=== PATIENT | female | born 1950 | race Caucasian/White ===

== ENCOUNTER 2017-08-14 08:59 | Inpatient (IN) | payer OTHER, MEDICARE ==
[2017-08-13 13:33] LABS: ABSOLUTE BASOPHIL COUNT 0 /CUMM (0.0-0.2); ABSOLUTE EOSINOPHIL COUNT 0 /CUMM (0.0-0.7); ABSOLUTE LYMPH COUNT 1.1 /CUMM (1.2-3.4); ABSOLUTE MONOCYTE COUNT 0.7 /CUMM (0.10-0.60); BASOPHIL % 0.3 % (0.0-2.0); EOSINOPHIL % 0.2 % (0-5); HEMATOCRIT 39.1 % (37-47); MEAN CORPUSCULAR HGB 31.5 PG (27.0-31.0); MEAN CORPUSCULAR HGB CONC 33.1 G/DL (33.0-37.0); MEAN CORPUSCULAR VOLUME 95.2 FL (81.0-99.0); MEAN PLATELET VOLUME 7.3 FL (7.4-10.4); PLATELET COUNT 307 /CUMM (130-400); RBC DISTRIBUTION WIDTH 13.2 % (11.5-14.5); RED BLOOD CELL CT 4.11 /CUMM (4.20-5.40); WHITE BLOOD CELL COUNT 8.9 /CUMM (4.8-10.8)
[~2017-08-14] VITALS: Ht 175.3 cm; Wt 72.6 kg
[~2017-08-14 08:59] MED LIST: ALPRAZOLAM1 MG PO; BIOTIN1000 MCG PO; CELEBREX PO; CLARITIN10 MG PO; CYMBALTA 30 MG30 MG PO; CYMBALTA60 MG PO; DEEP SEA 45 ML45 ML NAS; FERROUS FUMARA324 MG PO; FLONASE120 SPRAY/ NASB; FLUTICASON0.05 MG/A2 NAS; HYDROXYZINE10 MG PO; LEVOTHYROXIN0.112 MG PO; LEXAPRO PO; LYRICA 25 MG PO; NAPROXEN220 MG PO; NASACORT A55 MCG/Ac1 NAS; NASAL 30 ML30 M1 NAS; OXACILLIN2 G1 IV; OXYCODONE HCL5 MG PO; RANITIDINE150 MG PO; REFRESH TEARS 115 ML OPH; SENOKOT8.6 MG PO; VITAMIN B121000 MCG PO; VITAMIN D32000 I1 PO
--- NOTE | 2017-08-14 09:21 | ED UPPER/LOWER EXTREMITY COMPL ---
History of Present Illness General Chief Complaint: Lower Extremity Problems Stated Complaint: R KNEE INFECTION Source: patient, old records Exam Limitations: no limitations Vital Signs & Intake/Output Vital Signs & Intake/Output Vital Signs Date Time Temp Pulse Resp B/P B/P Pulse O2 O2 Flow FiO2 Mean Ox Delivery Rate 08/14 1042 98.5 08/14 0915 98.5 78 15 121/70 97 Room Air Room Air Allergies Coded Allergies: MICK Inhibitors (UNKNOWN 08/14/17) Reconcile Medications Bupropion HCl (Wellbutrin Sr) 150 MG TABLET.ER 1 TAB PO DAILY MENTAL HEALTH ( Reported) Escitalopram Oxalate (Lexapro) 10 MG TABLET 1 TAB PO DAILY MENTAL HEALTH ( Reported) Hydroxyzine HCl 10 MG TABLET 1 TAB PO BIDP PRN ITCHING (Reported) Levothyroxine Sodium 112 MCG TABLET 1 TAB PO DAILY AC THYROID (Reported) Trazodone HCl 50 MG TABLET 2 TAB PO QPM SLEEP (Reported) Triage Note: PT TO ED FOR R KNEE PAIN. PT HAD R KNEE REPLACEMENT IN 2009, BUT PT HAD KNEE DRAINED ON FRIDAY AND HAS BEEN HAVING PAIN SINCE. SCHEDULED TO HAVE SURGERY TODAY AT 0700 BUT WAS THEN SENT TO ED FOR ADMISSION UNDER SURGICAL TEAM. PT HAS BEEN NPO SINCE LAST NIGHT. AFEBRILE IN TRIAGE. Triage Nurses Notes Reviewed? yes Onset: Abrupt Duration: day(s): (3), constant Timing: recent history Severity: moderate Severity Numbers: 8 Pain/Injury Location: Right: Knee. Method of Injury: unknown Modifying Factors: Worsens With: movement. Associated Symptoms: swelling, redness, stiffness, fever HPI: 67 year old female with past medical history significant for r knee replacement by dr phan in 2009, septic arthritis of the left knee, hypertension, hyperlipidemia, asthma/COPD, sleep apnea with CPAP machine, chronic arthritis, history of breast cancer in 1996, hypothyroidism, GERD, Bipolar personality disorder, dvt/pulmonary embolus, hx IVC filter, hx gastric bypass presents to the ER for evaluation sent in by her orthopedic doctor for admission to the hospital and OR for washout. Patient had a arthrocentesis performed of the knee yesterday by Dr. Jessica. The patient states she's been having pain and warmth to her knee for the past 2-3 days associated with subjective fever and chills. She denies any hip foot or ankle pain no numbness or tingling no chest pain no cough abdominal pain. She denies any known trauma or fall. Past History Travel History Traveled to [place] past 21 day No Medical History Any Pertinent Medical History? 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 Other Medical Hx: Sepsis after gastric bypass, psoriasis History of MRSA: No History of VRE: No History of CDIFF: No Influenza Vaccine: 02/02/15 Surgical History Surgical History: hernia repair-ventral, knee replacement (right knee), lumpectomy (left x2 1996), knee arthroplasty lumpectomy gastric bypass GJ bypass 01/03/2011 f/b lap x 2 for anast leak & intra abd abscess status post left knee arthroscopy 7 years prior to admission status post gastric bypass surgery complicated by an anastomotic leak Psychosocial History Who do you live with Spouse Services at Home None What is your primary language Yakut Tobacco Use: Quit >30 days ago ETOH Use: occasional use Illicit Drug Use: denies illicit drug use Family History Family History, If Any: FATHER (Hx colon polyps). , Age 87; Cause: CHF (congestive heart failure ). MOTHER, , Age 83; Cause: CHF (congestive heart failure). Hx Contributory? No Review of Systems Review of Systems Constitutional: Reports: see HPI. Comments Review of systems: See HPI, All other systems negative. Constitutional, Subjective chills fever, HEENT: no sore throat no congestion Cardiovascular: No chest pain , no palpitation Skin: no rashes, no change in skin Respiratory: No dyspnea no cough no sputum GI: No nausea no vomiting, no diarrhea Muscle skeletal: joint pain, no back pain, no neck pain, Neurologic: , no headache Heme/endocrine: No bruising Immunology: No lymphadenopathy Physical Exam Physical Exam General Appearance: well developed/nourished, no apparent distress, alert Comments: Well-developed well-nourished patient in no apparent distress. HEENT: Atraumatic, extraocular motion intact Neck: Supple, FROM Back: FROM Cardiovascular: Regular rate and rhythms Respiratory: No respiratory distress. Patient speaking in full complete sentences. Breath sounds clear to auscultation bilaterally: NO W/R/R Upper Extremities: full range of motion Hip/Pelvis: Atraumatic/Stable. FROM. No pain with pelvic compression Knee: Atraumatic/stable. No laxity. pain with ROM of the right knee limited range of motion secondary to pain, there is positive warmth however no erythema no ecchymosis, the left knee is atraumatic Leg: Atraumatic. Nontender. No edema, 5 out of 5 strength in the lower extremity, normal dorsiflexion of great toe bilaterally, gross sensation is intact Ankle/Foot: Atraumatic/stable. Skin intact. FROM. No swelling, no effusion. No laxity on exam Pulses: Normal/equal DP/PT pulses bilaterally. Brisk cap refill Neuro: awake, alert, and oriented to person, place and time. There were no obvious focal neurologic abnormalities. Skin: Warm & dry;No appreciable rash on exposed skin Psych: Mood affect normal, normal memory normal judgment. Progress Differential Diagnosis: cellulitis, contusion, septic arthritis, sprain, tendon injury Plan of Care: Orders Procedure Date/time Status Nothing by Mouth 08/14 L Active LACTIC ACID 08/14 1220 Active Pathway - chart 08/14 1101 Active Admit to inpatient 08/14 1101 Active Patient Data 08/14 1101 Active Misc Message 08/14 1033 Active ED Holding Orders 08/14 1033 Active Admit to inpatient 08/14 1033 Active Vital Signs 08/14 1033 Active Code Status 08/14 1033 Active EKG 08/14 0940 Active BLOOD CULTURE 08/14 0920 Active PARTIAL THROMBOPLASTIN TIME 08/14 0920 Complete PROTHROMBIN TIME 08/14 0920 Complete LACTIC ACID 08/14 0920 Complete COMPREHENSIVE METABOLIC PANEL 08/14 0920 Complete CBC WITHOUT DIFFERENTIAL 08/14 0920 Complete TYPE & SCREEN (NOT X-MATCH) 08/14 0920 Complete VTE Mechanical Prophylaxis 08/14 UNK Active Vital Signs 08/14 UNK Active Intake & Output 08/14 UNK Active Activity/Ambulation 08/14 UNK Active Current Medications Sig/Annamarie Start time Last Medication Dose Stop Time Status Admin Bupropion HCl 150 MG DAILY 08/15 0900 UNVr (Wellbutrin XL) Escitalopram Oxalate 10 MG DAILY 08/15 0900 UNVr (Lexapro) Levothyroxine Sodium 0.112 MG DAILY AC 08/15 0700 UNVr (Synthroid) Trazodone HCl 100 MG QPM 08/14 2100 UNVr (Desyrel) Acetaminophen 650 MG Q6P PRN 08/14 1100 UNVr (Tylenol) Dextrose/Sodium 1,000 ML .[id number] 08/14 1100 UNVr Chloride (D5-Normal Saline) Hydroxyzine HCl 25 MG TID PRN 08/14 1100 UNVr (Atarax) Morphine Sulfate 2 MG Q2 HRS NEEDED PRN 08/14 1100 UNVr (Morphine) Oxycodone/ 1 TAB Q6P PRN 08/14 1100 UNVr Acetaminophen (Percocet) Oxycodone/ 2 TAB Q4P PRN 08/14 1100 UNVr Acetaminophen (Percocet) Sodium Chloride 1,000 ML ONCE ONE 08/14 1015 AC 08/14 (Normal Saline 0.9%) 08/14 1654 1042 Laboratory Tests 08/14/17 1011: Anion Gap 12, Estimated GFR > 60, BUN/Creatinine Ratio 25.0, Glucose 107 H, Lactic Acid 0.7, Calcium 9.2, Total Bilirubin 0.6, AST 39 H, ALT 56 H, Alkaline Phosphatase 85, Total Protein 7.3, Albumin 4.0, Globulin 3.3, Albumin/ Globulin Ratio 1.2, PT 12.3, INR 1.13, APTT 35, CBC w Diff NO MAN DIFF REQ, RBC 4.10 L, MCV 95.6, MCH 32.2 H, MCHC 33.7, RDW 12.7, MPV 7.4, Gran % 69.9, Lymphocytes % 20.7, Monocytes % 8.1, Eosinophils % 1.1, Basophils % 0.2, Absolute Granulocytes 4.4, Absolute Lymphocytes 1.3, Absolute Monocytes 0.5, Absolute Eosinophils 0.1, Absolute Basophils 0 Microbiology 08/14 1036 BLOOD: Blood Culture - RECD 08/14 0920 BLOOD: Blood Culture - ORD old records including the pts joint fluid anaylsis reviewed. call placed to ortho 1000 case discussed with surgical AARON shetty- no antibiotics at this time no x- ray labs EKG ordered, IV fluids, IV Tylenol ordered patient will go to the OR this afternoon Initial ED EKG: normal intervals, normal p-waves, normal QRS complex, normal sinus rhythm Prior EKG: unchanged Departure Departure Time of Disposition: 101 Disposition: STILL A PATIENT Condition: Stable Clinical Impression Primary Impression: Septic arthritis Referrals: Opal SMITH,Calista Schroeder (PCP/Family) Departure Forms: Customer Survey General Discharge Information Admission Note Spoke With: Vadim SMITH,Ovidio Cifuentes Documentation of Exam: Documentation of any treatments & extenuating circumstances including Concerns Regarding Discharge (functional status, medication knowledge or non-compliance, living conditions, etc.) that warrant an admission rather than observation: OR washout, iv abx, trend labs, trend cultures, id consult
[2017-08-14 10:30] LABS: ABSOLUTE BASOPHIL COUNT 0 /CUMM (0.0-0.2); ABSOLUTE EOSINOPHIL COUNT 0.1 /CUMM (0.0-0.7); ABSOLUTE GRANULOCYTE CT 4.4 /CUMM (1.4-6.5); ABSOLUTE LYMPH COUNT 1.3 /CUMM (1.2-3.4); ABSOLUTE MONOCYTE COUNT 0.5 /CUMM (0.10-0.60); BASOPHIL % 0.2 % (0.0-2.0); EOSINOPHIL % 1.1 % (0-5); GRANULOCYTE % 69.9 % (42.2-75.2); HEMATOCRIT 39.2 % (37-47); MEAN CORPUSCULAR HGB 32.2 PG (27.0-31.0); MEAN CORPUSCULAR HGB CONC 33.7 G/DL (33.0-37.0); MEAN CORPUSCULAR VOLUME 95.6 FL (81.0-99.0); MEAN PLATELET VOLUME 7.4 FL (7.4-10.4); PLATELET COUNT 303 /CUMM (130-400); RBC DISTRIBUTION WIDTH 12.7 % (11.5-14.5); WHITE BLOOD CELL COUNT 6.4 /CUMM (4.8-10.8)
[2017-08-14 10:39] LABS: PT 12.3 SEC (9.4-12.5); PTT 35 SEC (25-37)
[2017-08-14] MEDS ORDERED: TRAZODONE HCL50 M1 PO (10:41)
[2017-08-14] MEDS ORDERED: LEVOTHYROXINE112 MCG PO (10:41)
[2017-08-14] MEDS ORDERED: WELLBUTRIN SR150 M1 PO (10:41)
[2017-08-14] MEDS ORDERED: LEXAPRO10 M1 PO (10:41)
[2017-08-14] MEDS ORDERED: HYDROXYZINE HCL10 M1 PO (10:42)
--- NOTE | 2017-08-14 11:35 | History & Physical Pre-Op ---
General Information and HPI MD Statement: I have seen and personally examined ALBAN ZHAO and documented this H&P. The patient is a 67 year old F who presented with a patient stated chief complaint of [R knee infection]. Source of Information: patient, old records Exam Limitations: no limitations History of Present Illness: 67 yo female with co R knee pain for 4 days, started without trauma. Hx of R TKA >[address] Fierro without complications. hx of L septic knee in the past. hx of DVT/PE, sepsis p gastric bypass surgery. she noted chills when knee pain started, no fever. seen by Dr Jessica as out pt yesterday and knee was aspirated and thought to be infected (no growth on culture thus far). labs yesterday show WBC of 8.6, crp >9, ESR 48. she was advised to be admitted this morning for a surgical washout and poly exchange later today. she has moderate pain, limping, difficluty walking. no recent dental work or significan systemic symptoms of infection. Allergies/Medications Allergies: Coded Allergies: MICK Inhibitors (UNKNOWN 08/14/17) Home Med list Bupropion HCl (Wellbutrin Sr) 150 MG TABLET.ER 1 TAB PO DAILY MENTAL HEALTH ( Reported) Escitalopram Oxalate (Lexapro) 10 MG TABLET 1 TAB PO DAILY MENTAL HEALTH ( Reported) Hydroxyzine HCl 10 MG TABLET 1 TAB PO BIDP PRN ITCHING (Reported) Levothyroxine Sodium 112 MCG TABLET 1 TAB PO DAILY AC THYROID (Reported) Trazodone HCl 50 MG TABLET 2 TAB PO QPM SLEEP (Reported) Past History Medical History Neurological: NONE EENT: NONE Cardiovascular: IVC FILTER 2010 Respiratory: asthma, COPD, obstructive sleep apnea Gastrointestinal: diverticuloisis, Hepatic: hx fatty liver Renal: urinary stress incontinence Musculoskeletal: degen joint disease, osteoarthritis, osteoporosis Psychiatric: depression, CHRONIC ANXIETY DISORDER Endocrine: hypothyroidism, CONTACT DERMATITIS Blood Disorders: NONE (IVC filter- off Coumadin 2011), 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/B12 def), DVT, PE Cancer(s): breast cancer (status post radiation therapy) 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 Other Medical Hx: Sepsis after gastric bypass, psoriasis L knee septic arthritis History of MRSA: No History of VRE: No History of CDIFF: No Isolation History: Standard Influenza Vaccine: 02/02/15 Surgical History Pertinent Surgical History: hernia repair-ventral, knee replacement (right knee) , lumpectomy (left x2 1996), knee arthroplasty lumpectomy gastric bypass GJ bypass 01/03/2011 f/b lap x 2 for anast leak & intra abd abscess status post left knee arthroscopy 7 years prior to admission status post gastric bypass surgery complicated by an anastomotic leak Past Family/Social History Family History Relations & Conditions if any FATHER (Hx colon polyps). , Age 87; Cause: CHF (congestive heart failure ). MOTHER, , Age 83; Cause: CHF (congestive heart failure). Psychosocial History Who Do You Live With? spouse Services at Home None Primary Language: Romansh ETOH Use: occasional use Illicit Drug Use: denies illicit drug use Living Will? yes Power of Anesthetic Assistant/HCP? unknown Functional Ability ADLs Independent: dressing, eating, toileting, bathing. Ambulation: independent IADLs Independent: shopping, housework, finances, food prep, telephone, transportation , medication admin. Review of Systems Review of Systems: see hpi Review of Systems Constitutional: Reports: chills. EENTM: Reports: no symptoms. Cardiovascular: Reports: no symptoms. Respiratory: Reports: no symptoms. GI: Reports: no symptoms. Genitourinary: Reports: no symptoms. Musculoskeletal: Reports: see HPI. Skin: Reports: rash (chronic dermatitis). Neurological/Psychological: Reports: no symptoms. Hematologic/Endocrine: Reports: no symptoms. Exam & Diagnostic Data Last 24 Hrs of Vital Signs/I&O Vital Signs Date Time Temp Pulse Resp B/P B/P Pulse O2 O2 Flow FiO2 Mean Ox Delivery Rate 08/14 1042 98.5 08/14 0915 98.5 78 15 121/70 97 Room Air Room Air Intake & Output 08/14 1600 08/14 0800 08/14 0000 Intake Total Output Total Balance Patient 160 lb Weight Weight Reported by Patient Measurement Method Physical Exam General Appearance Alert, Oriented X3, Cooperative, No Acute Distress Skin psoraiasis and chronic dermatitis, ble HEENT Atraumatic, PERRLA Neck Supple Cardiovascular Regular Rate, Normal S1, Normal S2 Lungs Clear to Auscultation, Normal Air Movement Abdomen Normal Bowel Sounds, Soft, No Tenderness, No Hepatospenomegaly Neurological limping Extremities R knee- effusion, warmth, mildly tender. limited ROM Last 24 Hrs of Labs/Berhane: Laboratory Tests 08/14/17 1011: Anion Gap 12, Estimated GFR > 60, BUN/Creatinine Ratio 25.0, Glucose 107 H, Lactic Acid 0.7, Calcium 9.2, Total Bilirubin 0.6, AST 39 H, ALT 56 H, Alkaline Phosphatase 85, Total Protein 7.3, Albumin 4.0, Globulin 3.3, Albumin/ Globulin Ratio 1.2, PT 12.3, INR 1.13, APTT 35, CBC w Diff NO MAN DIFF REQ, RBC 4.10 L, MCV 95.6, MCH 32.2 H, MCHC 33.7, RDW 12.7, MPV 7.4, Gran % 69.9, Lymphocytes % 20.7, Monocytes % 8.1, Eosinophils % 1.1, Basophils % 0.2, Absolute Granulocytes 4.4, Absolute Lymphocytes 1.3, Absolute Monocytes 0.5, Absolute Eosinophils 0.1, Absolute Basophils 0 Microbiology 08/14 1036 BLOOD: Blood Culture - RECD 08/14 0920 BLOOD: Blood Culture - ORD Assessment/Plan Assessment/Plan: R septic knee, hx of TKA admit to ortho service npo ivf pre op labs/ekg to OR today for I and D and poly exchange hold abx until after surgery Medicine consult Dw Dr Fierro As Ranked By This Provider Problem List: 1. Septic arthritis
--- NOTE | 2017-08-14 11:48 | Admission Core Measures ---
Acute Coronary Syndrome (CM) ACS Core Measures Acute Coronary Syndrome Diagnosis No Congestive Heart Failure (NEW) CHF Core Measures Congestive Heart Failure Diagnosis No Cerebrovascular Accident (NEW) CVA Core Measures CVA/TIA Diagnosis No Venous Thromboembolism VTE Core Melina (View Protocol) VTE Risk Factors Age>40 No Mechanical VTE Prophylaxis d/t N/A MechProphylax Ordered No VTE Pharm Prophylaxis d/t Surgical Contraindication Problem List As ranked by this Provider includes Assessment & Plan 1. Septic arthritis HOME MEDS Home Med List Bupropion HCl (Wellbutrin Sr) 150 MG TABLET.ER 1 TAB PO DAILY MENTAL HEALTH ( Reported) Escitalopram Oxalate (Lexapro) 10 MG TABLET 1 TAB PO DAILY MENTAL HEALTH ( Reported) Hydroxyzine HCl 10 MG TABLET 1 TAB PO BIDP PRN ITCHING (Reported) Levothyroxine Sodium 112 MCG TABLET 1 TAB PO DAILY AC THYROID (Reported) Trazodone HCl 50 MG TABLET 2 TAB PO QPM SLEEP (Reported)
--- NOTE | 2017-08-14 12:38 | Cons- Medical ---
See Addendum Lucy SMITH,[place] 08/14/17 1238: General Information and HPI Consulting Request Date of Consult: 08/14/17 Requested By: Dr Fierro Reason for Consult: Post SurgicalManagement Source of Information: patient, family, old records Exam Limitations: no limitations History of Present Illness: Ms Red is a 67-year-old female with past medical history of COPD, TITA (no longer on CPAP machine) hypothyroidism, PT and PE, history of IVC filter placement, history of gastric bypass and mood disorder (?Bipolar) who was seen this afternoon at same day surgery prior to undergoing procedure for surgical washout and poly-exchange scheduled for later during the day. Patient states that she's been in her normal state of health until Friday (08/11) when she woke up at midnight and felt like she had the chills. Since then she is continued to endorse some mild pain and warmth in her knee. She has a history of a right knee replacement done by Dr Fierro done twelve years ago.Yesterday she went to the office of Dr Jessica who took a sample from the knee effusion, after it was presumed to be infected. Was told to come to the ED this am for work up and possible admission. Sample from yesterday's aspiration have had no growth so far. She also has several complications following her Bariatric procedure (septic and anastamotic leak). At the time of the clinical introduction she endorsed no complaints and looked slightly worried about her upcoming procedure. She had no significant symptoms of infection. Allergies/Medications Allergies: Coded Allergies: MICK Inhibitors (UNKNOWN 08/14/17) Home Med List: Bupropion HCl (Wellbutrin Sr) 150 MG TABLET.ER 1 TAB PO DAILY MENTAL HEALTH ( Reported) Escitalopram Oxalate (Lexapro) 10 MG TABLET 1 TAB PO DAILY MENTAL HEALTH ( Reported) Hydroxyzine HCl 10 MG TABLET 1 TAB PO BIDP PRN ITCHING (Reported) Levothyroxine Sodium 112 MCG TABLET 1 TAB PO DAILY AC THYROID (Reported) Trazodone HCl 50 MG TABLET 2 TAB PO QPM SLEEP (Reported) Current Medications: Current Medications Sig/Annamarie Start time Last Medication Dose Route Stop Time Status Admin Acetaminophen 650 MG Q6P PRN 08/14 1100 UNVr PO Acetaminophen 0 .STK-MED ONE 08/14 1034 DC IV Acetaminophen 1,000 MG ONCE ONE 08/14 1015 DC 08/14 N/A 1 UNIT IV 08/14 1029 1042 Bupropion HCl 150 MG DAILY 08/15 09 UNVr PO Dextrose/Sodium 1,000 ML .[id number] 08/14 1100 UNVr Chloride IV Escitalopram Oxalate 10 MG DAILY 08/15 0900 UNVr PO Hydroxyzine HCl 25 MG TID PRN 08/14 1100 UNVr PO Hydroxyzine HCl 10 MG ONCE 08/14 0000 NR PO 08/14 2359 Levothyroxine Sodium 0.112 MG DAILY AC 08/15 0700 UNVr PO Morphine Sulfate 2 MG Q2 HRS NEEDED PRN 08/14 1100 UNVr IV Oxycodone/ 1 TAB Q6P PRN 08/14 1100 UNVr Acetaminophen PO Oxycodone/ 2 TAB Q4P PRN 08/14 1100 UNVr Acetaminophen PO Sodium Chloride 1,000 ML ONCE ONE 08/14 1015 AC 08/14 IV 08/14 1654 1042 Trazodone HCl 100 MG QPM 08/14 2100 UNVr PO Review of Systems Review of Systems Constitutional: Reports: chills. 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), DVT, PE Cancer(s): breast cancer (status post radiation therapy) TOBACCO EDUCATOR/Reproductive: NONE Other Medical Hx: Sepsis after gastric bypass, psoriasis L knee septic arthritis Surgical History Surgical History: hernia repair-ventral, knee replacement (right knee), lumpectomy (left x2 1996), knee arthroplasty lumpectomy gastric bypass GJ bypass 01/03/2011 f/b lap x 2 for anast leak & intra abd abscess status post left knee arthroscopy 7 years prior to admission status post gastric bypass surgery complicated by an anastomotic leak Family History Relations & Conditions If Any: FATHER (Hx colon polyps). , Age 87; Cause: CHF (congestive heart failure ). MOTHER, , Age 83; Cause: CHF (congestive heart failure). Psychosocial History Who Do You Live With? spouse Services at Home: None Primary Language: Indonesian ETOH Use: occasional use Illicit Drug Use: denies illicit drug use Living Will? yes Power of Telemetry Technician/HCP? unknown Functional Ability ADLs Independent: dressing, eating, toileting, bathing. Ambulation: independent IADLs Independent: shopping, housework, finances, food prep, telephone, transportation , medication admin. Exam & Diagnostic Data Last 24 Hrs of Vital Signs/I&O Vital Signs Date Time Temp Pulse Resp B/P B/P Pulse O2 O2 Flow FiO2 Mean Ox Delivery Rate 08/14 1042 98.5 08/14 0915 98.5 78 15 121/70 97 Room Air Room Air Intake & Output 08/14 1600 08/14 0800 08/14 0000 Intake Total Output Total Balance Patient 72.575 kg Weight Weight Reported by Patient Measurement Method Physical Exam General Appearance: well developed/nourished, no apparent distress, alert Eyes: Bilateral: normal appearance. Ears, Nose, Throat: normal pharynx, normal ENT inspection Neck: normal inspection, supple, full range of motion Respiratory: normal breath sounds, chest non-tender Cardiovascular: regular rate/rhythm Peripheral Pulses: 4+ dorsalis pedis (R), 4+ dorsalis pedis (L) Gastrointestinal: normal bowel sounds, soft, non-tender Extremities: Multiple Excoriated Green on Distal LE, mild erythema Right knee: limited ROM, Redness, Warmth, tenderness with Movement Last 24 Hrs of Labs/Berhane: Laboratory Tests 08/14/17 1011: Anion Gap 12, Estimated GFR > 60, BUN/Creatinine Ratio 25.0, Glucose 107 H, Lactic Acid 0.7, Calcium 9.2, Total Bilirubin 0.6, AST 39 H, ALT 56 H, Alkaline Phosphatase 85, Total Protein 7.3, Albumin 4.0, Globulin 3.3, Albumin/ Globulin Ratio 1.2, PT 12.3, INR 1.13, APTT 35, CBC w Diff NO MAN DIFF REQ, RBC 4.10 L, MCV 95.6, MCH 32.2 H, MCHC 33.7, RDW 12.7, MPV 7.4, Gran % 69.9, Lymphocytes % 20.7, Monocytes % 8.1, Eosinophils % 1.1, Basophils % 0.2, Absolute Granulocytes 4.4, Absolute Lymphocytes 1.3, Absolute Monocytes 0.5, Absolute Eosinophils 0.1, Absolute Basophils 0 Diagnostic Data CXR Results r Assessment/Plan Assessment/Plan Ms Red is a 67-year-old female with past medical history of COPD, TITA (no longer on CPAP machine) hypothyroidism, PT and PE, history of IVC filter placement, history of gastric bypass and mood disorder (?Bipolar) who was seen this afternoon at same day surgery prior to undergoing procedure for surgical washout and poly-exchange scheduled for later during the day. Post Op, she will be managed on the floor of the following conditions. Left Knee pain, concern for septic/infected joint Following surgical procedure 12 years ago, no infections. Patient states that she has dermatitis and is offted scratching. At the time of admission patient did not meet septic criteria. Plan: Proceed for surgical washout and poly-exchange. RCRI, Class 1 Risk. 0.4% Risk of Major Cardiac event. Consider ID Consultation in AM, question duration of antibiotic coverage. Incentive spirometer. Consider ABG if somnolent, if hypercarbic, begin patient on BiPAP History of mood disorders. Currenlty Stable/slightly anxious. Plan Continue home Buproprion, Ecitalopram, Hold trazodone for now. History of pruritus Currently Stable Plan Continue hydroxyzine. History of Hypothyroidism Clinincally Eurthyroid on levothyroxine. Plan: Will Continue Levothyroxine Post op. DVT prophylaxis as per surgery. Patient is a full code. Thank you for consult request we will continue follow with you. Copies To: Opal SMITH,Calista Schroeder Consult Acknowledgment - Thank you for your consult request. Zhang Washington MD 08/14/17 2316: Assessment/Plan Consult Acknowledgment - Thank you for your consult request. Attending Review Statement Attending Statement Attending MD Statement: examined this patient, discuss w/resident/PA/DRYWALL TAPER HELPER, agreed w/resident/PA/DRYWALL TAPER HELPER, reviewed EMR data (avail), amended to note Attending Assessment/Plan: The patient is a 67 yo female with h/o COPD, TITA (no longer on CPAP post weight loss), hypothyroid, s/p gastric bypass (2011) with subsequent abdominal abscess/ sepsis and DVT/PE (also with post PE post surgery in distant past), IVC filter placement who is status post prior right knee replacement 12 years ago and noted swelling and pain this week. She was seen as an outpatient by Dr. Jessica who performed arthrocentesis as an outpatient yesterday with results compatible with infection. She came in via ED with plan for surgical intervention. She denied fever, however did note some chills. Stated she has had excoriations and itching on both lower extremities (left > right). No recent infections or antibiotics. She denies any chest pain, exertional dyspnea, cough or other symptoms. Plan is for surgical washout and poly exchange today. Physical Exam: VS: T 98.5, P 78, R 15, BP 121/70, PO 97% RA HEENT: eyes- PERRLA, EOMI eliseo- dry mucosa (has been NPO) Neck: no JVD/bruits Chest: clear Cor: RRR nl S1, S2 w/o murm Abd: BS+, soft, NT, - HSM Ext: + right knee joint effusion (mild) with slight warmth w/o erythema, diminished ROM right knee with pain, Multiple excoriations on distal LE with mild erythema (left > right) Neuro: alert & oriented x 3, non-focal, gait not tested Labs/Tests- as above. Impression/Plan: #Septic Arthritis Right Knee- with h/o TKR 12 years ago. No recent infections, however patient has had superficial abrasions on both distal LE with mild erythema. States she scratches and referred to it as dermatitis. ESR and CRP significantly elevated. S/P arthrocentesis with cultures pending. No sepsis by criteria. Plan: Admitted to orthopedics with plan for surgery today as above. Antibiotics post op- ? ID consult. Would cover for skin bacteria. Will follow. #Risk Assessment- The patient has no cardiac symptoms (no chest pain, exertional symptoms), EKG and Cr are normal. RCRI is - indicating 0.4% perioperative cardiac risk. She does have h/o COPD and TITA, however no recent issues after weight loss. No longer uses CPAP. Type of surgery is low risk procedure. Plan: As above, surgical risk is low. Aubrie-operatively will monitor VS and lung exam. TRC nebs if any wheezing. Incentive spirometry. #H/O DVT/PE- and IVC filter placement. 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 Also FH of clot in mother. Plan: Suggest some anticoagulation post op when safe from surgical perspective. #Hypothyroid- on Levothyroxine and clinically euthyroid. Plan: Continue Levothyroxine. #Depression- anxious regarding procedure, however appropriate. Plan: Continue Lexapro and Wellbutrin ot procedure. Will follow.
[2017-08-14 20:30] VITALS: BP 124/72
--- NOTE | 2017-08-14 23:31 | PN- Orthopedic ---
Subjective Subjective: Patient doing well since arriving back to the floor. She has not been out of bed yet. Pain is well-controlled. She denies any other issues or complaints. No other concerns per nursing. Objective Vital Signs and I&Os Vital Signs Date Time Temp Pulse Resp B/P B/P Pulse O2 O2 Flow FiO2 Mean Ox Delivery Rate 08/14 1042 98.5 08/14 0915 98.5 78 15 121/70 97 Room Air Room Air Intake & Output 08/14 1600 08/14 0808/14 0000 08/13 1600 08/13 0808/13 0000 Intake Total Output Total Balance Patient 160 lb Weight Weight Reported by Patient Measurement Method Physical Exam: General: Alert, awake, no acute distress Right Knee: Dressing is clean, dry, and intact w/out any strikethrough Extremities: Neurovascular status is intact and equal bilaterally, no clubbing, cyanosis, or edema Current Medications: Current Medications Sig/Annamarie Start time Last Medication Dose Route Stop Time Status Admin Acetaminophen 650 MG Q6P PRN 08/14 1100 AC PO Acetaminophen 0 .STK-MED ONE 08/14 1034 DC IV Acetaminophen 1,000 MG ONCE ONE 08/14 1015 DC 08/14 N/A 1 UNIT IV 08/14 1029 1042 Bupropion HCl 150 MG DAILY 08/15 0900 AC PO Dextrose/Sodium 1,000 ML .[id number] 08/14 1100 AC 08/14 Chloride IV 2130 Escitalopram Oxalate 10 MG DAILY 08/15 0900 AC PO Hydroxyzine HCl 25 MG TID PRN 08/14 1100 AC PO Hydroxyzine HCl 10 MG ONCE 08/14 0000 NR PO 08/14 2359 Levothyroxine Sodium 0.112 MG DAILY AC 08/15 0700 AC PO Morphine Sulfate 2 MG Q2 HRS NEEDED PRN 08/14 2315 AC 08/14 IV 2320 Morphine Sulfate 2 MG Q2 HRS NEEDED PRN 08/14 1100 DC IV Oxycodone/ 1 TAB Q6P PRN 08/14 1100 AC Acetaminophen PO Oxycodone/ 2 TAB Q4P PRN 08/14 1100 AC 08/14 Acetaminophen PO 2140 Sodium Chloride 1,000 ML ONCE ONE 08/14 1015 DC 08/14 IV 08/14 1654 1042 Trazodone HCl 100 MG QPM 08/14 2200 AC 08/14 PO 2240 Results Last 48 Hours of Labs: Laboratory Tests 08/14 08/14 2305 1011 Chemistry Sodium (137 - 145 mmol/L) 141 Potassium (3.5 - 5.1 mmol/L) 4.3 Chloride (98 - 107 mmol/L) 103 Carbon Dioxide (22 - 30 mmol/L) 26 Anion Gap (5 - 16) 12 BUN (7 - 17 mg/dL) 15 Creatinine (0.5 - 1.0 mg/dL) 0.6 Estimated GFR (>60 ml/min) > 60 BUN/Creatinine Ratio (7 - 25 %) 25.0 Glucose (65 - 99 mg/dL) 107 H Lactic Acid (0.7 - 2.1 mmol/L) Pending 0.7 Calcium (8.4 - 10.2 mg/dL) 9.2 Total Bilirubin (0.2 - 1.3 mg/dL) 0.6 AST (14 - 36 U/L) 39 H ALT (9 - 52 U/L) 56 H Alkaline Phosphatase (<127 U/L) 85 Total Protein (6.3 - 8.2 g/dL) 7.3 Albumin (3.5 - 5.0 g/dL) 4.0 Globulin (1.9 - 4.2 gm/dL) 3.3 Albumin/Globulin Ratio (1.1 - 2.2 %) 1.2 Coagulation PT (9.4 - 12.5 SEC) 12.3 INR (0.90 - 1.19) 1.13 APTT (25 - 37 SEC) 35 Hematology CBC w Diff NO MAN DIFF REQ WBC (4.8 - 10.8 /CUMM) 6.4 RBC (4.20 - 5.40 /CUMM) 4.10 L Hgb (12.0 - 16.0 G/DL) 13.2 Hct (37 - 47 %) 39.2 MCV (81.0 - 99.0 FL) 95.6 MCH (27.0 - 31.0 PG) 32.2 H MCHC (33.0 - 37.0 G/DL) 33.7 RDW (11.5 - 14.5 %) 12.7 Plt Count (130 - 400 /CUMM) 303 MPV (7.4 - 10.4 FL) 7.4 Gran % (42.2 - 75.2 %) 69.9 Lymphocytes % (20.5 - 51.1 %) 20.7 Monocytes % (1.7 - 9.3 %) 8.1 Eosinophils % (0 - 5 %) 1.1 Basophils % (0.0 - 2.0 %) 0.2 Absolute Granulocytes (1.4 - 6.5 /CUMM) 4.4 Absolute Lymphocytes (1.2 - 3.4 /CUMM) 1.3 Absolute Monocytes (0.10 - 0.60 /CUMM) 0.5 Absolute Eosinophils (0.0 - 0.7 /CUMM) 0.1 Absolute Basophils (0.0 - 0.2 /CUMM) 0 Assessment/Plan Assessment/Plan This is a 67 yo female with a complicated PMHx who developed a Right Septic Knee in the setting of a previous Right TKA, now POD#0 s/p washout and poly exchange 1. PT evaluation, weight bearing as tolerated with a rolling walker, assist at all times when standing or ambulating, knee immobilizer if leg unsteady, ROM - avoid prolonged flexion, no pillow under knee anticipate 2-3 day hospital stay and either home with services or str 2. Continue current analgesia and bowel regimen 3. DVT prophylaxis with pneumatic compression boots 4. Continue regular diet, HL IVF once tolerating adequate PO intake 5. Dressing change by the surgical team on POD#2 6. Home medications restarted 7. Will d/w Dr. Fierro Problem List: 1. Septic arthritis 2. S/P knee surgery Core Measures Venous Thromboembolism VTE Risk Factors Age>40 No Mechanical VTE Prophylaxis d/t N/A MechProphylax Ordered No VTE Pharm Prophylaxis d/t Surgical Contraindication
[2017-08-15 06:10] VITALS: BP 146/70
--- NOTE | 2017-08-15 07:15 | PN- Medicine Consult ---
Lucy SMITH,[facility] 08/15/17 0715: Assessment/PlanMedical Consult Assessment/Plan Assessment: Ms Red is a 67-year-old female with past medical history of COPD, TITA (no longer on CPAP machine) hypothyroidism, PT and PE, history of IVC filter placement, history of gastric bypass and mood disorder (?Bipolar) who was seen this this morning after successful right washout and polyexcange. POD #1. Plan: Left Knee pain, concern for septic/infected joint Following surgical procedure 12 years ago, no infections. Patient states that she has dermatitis and is offted scratching. At the time of admission patient did not meet septic criteria. Plan: RCRI, Class 1 Risk. 0.4% Risk of Major Cardiac event. Consider ID Consultation, question duration of antibiotic coverage. Incentive spirometer. History of mood disorders. Currently Stable Plan Continue home Buproprion, Ecitalopram, Hold trazodone for now. History of pruritus Currently Stable Plan Continue hydroxyzine, increase dose to 50 mg TID. History of Hypothyroidism Clinincally Eurthyroid on levothyroxine. Plan: Will Continue Levothyroxine Post op. History of DVT/PE. Patient does have an increased risk of clot. She is Status post IVC placement. Plan Suggest anticoagulation when cleared by surgery. DVT prophylaxis as per surgery. Patient is a full code. Thank you for consult request we will continue follow with you. Subjective Subjective: Mrs. Red was seen and examined this morning. Resting comfortably in bed. She denies any issues overnight and was able to tolerate the procedure well. She stated after getting back from the operating room she was able to have some by mouth intake. This morning she endorsed pain in her right lower extremity. Rated as 7 out of 10 in severity. Described as a dull pain. This pain was rated a 10 out of 10 however prior to receiving 2 Percocets. States that pain has responded well to anodyne medications. Also endorses some generalized pruritus and requests us to increase her hydroxyzine. She denies any fever, chills, nausea, vomiting. She has breakfast ordered for later this morning. Review of Systems Constitutional: Reports: see HPI. Objective Last 24 Hrs of Vital Signs/I&O Vital Signs Date Time Temp Pulse Resp B/P B/P Pulse O2 O2 Flow FiO2 Mean Ox Delivery Rate 08/15 0610 98.7 71 20 146/70 95 Room Air 08/14 2030 97.5 64 16 124/72 98 Room Air 08/14 1042 98.5 08/14 0915 98.5 78 15 121/70 97 Room Air Room Air Intake & Output 08/15 1600 08/15 0800 08/15 0000 Intake Total 700 307.5 Output Total 500 Balance 200 307.5 Intake, IV 600 187.5 Intake, Oral 100 120 Output, Urine 500 Patient 72.575 kg Weight Weight Reported by Patient Measurement Method Physical Exam General Appearance: well developed/nourished, no apparent distress, alert Head: atraumatic, normal appearance Neck: normal inspection, supple Cardiovascular: regular rate/rhythm Respiratory: normal breath sounds, chest non-tender, no respiratory distress Abdomen: normal bowel sounds, soft, non-tender Back: normal inspection, normal range of motion Extremities: normal inspection, no edema, Right Knee wrapped in badage. Ice pack in place. Dressing is Clean, dry and intact. Neurologic/Psychiatric: awake, alert Current Medications: Current Medications Sig/Annamarie Start time Last Medication Dose Route Stop Time Status Admin Acetaminophen 650 MG Q6P PRN 08/14 1100 AC 08/15 PO 0041 Acetaminophen 0 .STK-MED ONE 08/14 1034 DC IV Acetaminophen 1,000 MG ONCE ONE 08/14 1015 DC 08/14 N/A 1 UNIT IV 08/14 1029 1042 Bupropion HCl 150 MG DAILY 08/15 0900 AC 08/15 PO 0814 Cefazolin Sodium 1,000 MG IQ8 08/15 0000 DC 08/15 IV 08/15 0801 0813 Dextrose/Sodium 1,000 ML .[id number] 08/14 1100 AC 08/15 Chloride IV 0540 Docusate Sodium 100 MG BID 08/14 2327 AC 08/15 PO 0815 Enoxaparin Sodium 40 MG DAILY 08/15 0900 AC 08/15 SC 0814 Escitalopram Oxalate 10 MG DAILY 08/15 0900 AC 08/15 PO 0814 Hydroxyzine HCl 25 MG TID PRN 08/14 1100 AC 08/15 PO 0814 Hydroxyzine HCl 10 MG ONCE 08/14 0000 DC PO 08/14 2359 Levothyroxine Sodium 0.112 MG DAILY AC 08/15 0700 AC 08/15 PO 0533 Metoclopramide HCl 10 MG .STK-MED ONE 08/14 1828 DC IM 08/14 1829 Morphine Sulfate 2 MG Q2 HRS NEEDED PRN 08/14 2315 AC 08/14 IV 2320 Morphine Sulfate 2 MG Q2 HRS NEEDED PRN 08/14 1100 DC IV Oxycodone/ 1 TAB Q6P PRN 08/14 1100 AC Acetaminophen PO Oxycodone/ 2 TAB Q4P PRN 08/14 1100 AC 08/15 Acetaminophen PO 0534 Polyethylene Glycol 17 GM DAILY 08/15 0900 AC 08/15 PO 0814 Sodium Chloride 1,000 ML ONCE ONE 08/14 1015 DC 08/14 IV 08/14 1654 1042 Trazodone HCl 100 MG QPM 08/14 2200 AC 08/14 PO 2240 Results Last 24 Hrs Lab/Berhane Results: Laboratory Tests 08/14/17 2305: Lactic Acid 0.8 08/14/17 1011: Anion Gap 12, Estimated GFR > 60, BUN/Creatinine Ratio 25.0, Glucose 107 H, Lactic Acid 0.7, Calcium 9.2, Total Bilirubin 0.6, AST 39 H, ALT 56 H, Alkaline Phosphatase 85, Total Protein 7.3, Albumin 4.0, Globulin 3.3, Albumin/ Globulin Ratio 1.2, PT 12.3, INR 1.13, APTT 35, CBC w Diff NO MAN DIFF REQ, RBC 4.10 L, MCV 95.6, MCH 32.2 H, MCHC 33.7, RDW 12.7, MPV 7.4, Gran % 69.9, Lymphocytes % 20.7, Monocytes % 8.1, Eosinophils % 1.1, Basophils % 0.2, Absolute Granulocytes 4.4, Absolute Lymphocytes 1.3, Absolute Monocytes 0.5, Absolute Eosinophils 0.1, Absolute Basophils 0 Microbiology 08/14 2305 BLOOD: Blood Culture - RECD 08/14 1730 BODY FLUID: Body Fluid Culture - RECD 08/14 1730 BODY FLUID: Gram Stain - RECD 08/14 171 EXTREMITIE: Gross Specimen Examination - COLB 08/15 1711 EXTREMITIE: Gram Stain - COLB 08/14 1036 BLOOD: Blood Culture - RECZhang Matthews MD 08/15/17 1450: Attending MD Review Statement Attending Sign Off Attending Cosign Statement: I have: examined this patient, reviewed aval EMR data, personally reviewd images, discussd w/resident/PA/MEDIA MARKETING COORDINATOR, discussed mgmt plan w/pt, agreed w/resident/ PA/MEDIA MARKETING COORDINATOR, amended to note. Other Findings: The patient was seen and discussed with resident, surgical PA & nursing. ID input appreciated. Patient with significant pain. Is being observed off of Abx as per ID. Agree with empiric Rx with anti-inflammatory (Ibuprofen).
[2017-08-15 09:57] VITALS: BP 132/70
--- NOTE | 2017-08-15 10:13 | PN- Orthopedic ---
Subjective Subjective: Pain not well controlled. Unable to work with PT due to pain. No shortness of breath. No chest pains. Tolerating diet. No nausea/vomiting. Voiding with bedpan. Objective Vital Signs and I&Os Vital Signs Date Time Temp Pulse Resp B/P B/P Pulse O2 O2 Flow FiO2 Mean Ox Delivery Rate 08/15 956 100.5 82 20 132/70 95 Room Air 08/15 0610 98.7 71 20 146/70 95 Room Air 08/14 2030 97.5 64 16 124/72 98 Room Air 08/14 1042 98.5 Intake & Output 08/15 1600 08/15 0800 08/15 0000 08/14 1600 08/14 0800 08/14 0000 Intake Total 700 307.5 Output Total 500 Balance 200 307.5 Intake, IV 600 187.5 Intake, Oral 100 120 Output, Urine 500 Patient 160 lb 160 lb Weight Weight Reported by Patient Reported by Patient Measurement Method Physical Exam: General - alert & oriented x 3. uncomfortable. no acute distress. Lungs - clear bilaterally. no w/r/r. Cardiac - s1s2. reg. Abdomen - soft. nontender. Extremities - warm bilaterally. right knee dressing c/d/i. athrombics active b/ l. weak DF/PF rle. calves soft and nontender b/l. Current Medications: Current Medications Sig/Annamarie Start time Last Medication Dose Route Stop Time Status Admin Acetaminophen 650 MG .STK-MED ONE 08/15 0038 DC PO 08/15 0039 Acetaminophen 650 MG Q6P PRN 08/14 1100 08/15 PO 0041 Acetaminophen 0 .STK-MED ONE 08/14 1034 DC IV Acetaminophen 1,000 MG ONCE ONE 08/14 1015 NJ 08/14 N/A 1 UNIT IV 08/14 1029 1042 Bupropion HCl 150 MG DAILY 08/15 0900 08/15 PO 0814 Cefazolin Sodium 1,000 MG IQ8 08/15 0000 DC 08/15 IV 08/15 0801 0813 Dextrose/Sodium 1,000 ML .[id number] 08/14 1100 AC 08/15 Chloride IV 0540 Docusate Sodium 100 MG BID 08/14 2327 AC 08/15 PO 0815 Enoxaparin Sodium 40 MG DAILY 08/15 09 AC 08/15 SC 0814 Escitalopram Oxalate 10 MG DAILY 08/15 0900 AC 08/15 PO 0814 Hydroxyzine HCl 25 MG TID PRN 08/14 1100 AC 08/15 PO 0814 Hydroxyzine HCl 10 MG ONCE 08/14 0000 DC PO 08/14 2359 Levothyroxine Sodium 0.112 MG DAILY AC 08/15 0700 AC 08/15 PO 0533 Metoclopramide HCl 10 MG .STK-MED ONE 08/14 1828 DC IM 08/14 1829 Morphine Sulfate 2 MG Q2 HRS NEEDED PRN 08/14 2315 AC 08/14 IV 2320 Morphine Sulfate 2 MG Q2 HRS NEEDED PRN 08/14 1100 DC IV Oxycodone/ 1 TAB Q6P PRN 08/14 1100 AC Acetaminophen PO Oxycodone/ 2 TAB Q4P PRN 08/14 1100 AC 08/15 Acetaminophen PO 0955 Polyethylene Glycol 17 GM DAILY 08/15 0900 AC 08/15 PO 0814 Sodium Chloride 1,000 ML ONCE ONE 08/14 1015 DC 08/14 IV 08/14 1654 1042 Trazodone HCl 100 MG QPM 08/14 2200 AC 08/14 PO 2240 Results Last 48 Hours of Labs: Laboratory Tests 08/14 08/14 2305 1011 Chemistry Sodium (137 - 145 mmol/L) 141 Potassium (3.5 - 5.1 mmol/L) 4.3 Chloride (98 - 107 mmol/L) 103 Carbon Dioxide (22 - 30 mmol/L) 26 Anion Gap (5 - 16) 12 BUN (7 - 17 mg/dL) 15 Creatinine (0.5 - 1.0 mg/dL) 0.6 Estimated GFR (>60 ml/min) > 60 BUN/Creatinine Ratio (7 - 25 %) 25.0 Glucose (65 - 99 mg/dL) 107 H Lactic Acid (0.7 - 2.1 mmol/L) 0.8 0.7 Calcium (8.4 - 10.2 mg/dL) 9.2 Total Bilirubin (0.2 - 1.3 mg/dL) 0.6 AST (14 - 36 U/L) 39 H ALT (9 - 52 U/L) 56 H Alkaline Phosphatase (<127 U/L) 85 Total Protein (6.3 - 8.2 g/dL) 7.3 Albumin (3.5 - 5.0 g/dL) 4.0 Globulin (1.9 - 4.2 gm/dL) 3.3 Albumin/Globulin Ratio (1.1 - 2.2 %) 1.2 Coagulation PT (9.4 - 12.5 SEC) 12.3 INR (0.90 - 1.19) 1.13 APTT (25 - 37 SEC) 35 Hematology CBC w Diff NO MAN DIFF REQ WBC (4.8 - 10.8 /CUMM) 6.4 RBC (4.20 - 5.40 /CUMM) 4.10 L Hgb (12.0 - 16.0 G/DL) 13.2 Hct (37 - 47 %) 39.2 MCV (81.0 - 99.0 FL) 95.6 MCH (27.0 - 31.0 PG) 32.2 H MCHC (33.0 - 37.0 G/DL) 33.7 RDW (11.5 - 14.5 %) 12.7 Plt Count (130 - 400 /CUMM) 303 MPV (7.4 - 10.4 FL) 7.4 Gran % (42.2 - 75.2 %) 69.9 Lymphocytes % (20.5 - 51.1 %) 20.7 Monocytes % (1.7 - 9.3 %) 8.1 Eosinophils % (0 - 5 %) 1.1 Basophils % (0.0 - 2.0 %) 0.2 Absolute Granulocytes (1.4 - 6.5 /CUMM) 4.4 Absolute Lymphocytes (1.2 - 3.4 /CUMM) 1.3 Absolute Monocytes (0.10 - 0.60 /CUMM) 0.5 Absolute Eosinophils (0.0 - 0.7 /CUMM) 0.1 Absolute Basophils (0.0 - 0.2 /CUMM) 0 Assessment/Plan Assessment/Plan This 67 year old female hx gastric bypass, hx pe/dvt s/p ivc filter, anxiety/ depression, who presented with right septic knee in the setting of a previous right TKR, now POD#1 s/p washout and poly exchange tolerating diet. d/c iv fluids PT eval. wbat. knee immobilizer if leg unsteady, ROM -avoid prolonged flexion, no pillow under knee anticipate 2-3 day hospital stay and either home with services or str iv tylenol around the clock / oxycodone / morphine prn try toradol as needed lovenox - dvt ppx protonix - gi ppx dressing change tomorrow, POD#2 called for ID consult f/u labs and OR cultures ?continue iv ancef pending cultures f/u medical consult will d/w Core Measures Venous Thromboembolism VTE Risk Factors Age>40 No Mechanical VTE Prophylaxis d/t N/A MechProphylax Ordered No VTE Pharm Prophylaxis d/t Surgical Contraindication
--- NOTE | 2017-08-15 12:35 | Operative Report ---
Operative/Inv Procedure Report Surgery Date: 08/14/17 Name of Procedure: Right knee irrigation and debridement with revision poly-exchange knee replacement. 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 Dr. Dane Fierro MD,Ovidio Cifuentes Surgeon Anesthesia: general endotracheal tube (spinal anesthesia), spinal anesthesia Operative/Procedure Note Note: Patient was brought to the operating room and given a spinal anesthetic by the anesthesia team. A tourniquet was pre-placed around the right upper thigh and the right lower extremity was first prepped with alcohol and then formally prepped and draped. The old incision was marked out the leg was held aloft and the tourniquet inflated to [address] way for 45 minutes. Using a midline incision right over the previous incision this was carried down to the extensor mechanism creating medial and lateral flaps. A medial parapatellar approach was carried out. Significant debridement carried out in the joint to release the extensor mechanism. A clamp was placed holding the distal patella tendon against the tibia so that this could not be torn off. There was noted to be metallic staining of the soft tissues around the prostheses. When the polyethylene was removed there was no significant wear of the polyethylene. There was slight wear of the patella polyethylene. The implants seemed to be fixed well. Thorough debridement was carried out and all areas of the joint. The locking clip was then removed from the tibial baseplate and the polyethylene polyethylene removed and thorough pulsed irrigation carried out using 9 L of fluid. Appropriate specimens were sent first of fluid then of synovial tissue. These were sent for culture sensitivity. After extensive thorough debridement a new polyethylene liner was placed after trialing a 12 polyethylene and a new 12 polyethylene posterior stabilized component was placed. This was for a 71 size tibial base plate. The implant was the [employer] Vanguard system. Again after thorough irrigation the wound was closed in a layered fashion dry sterile dressings were applied and she was sent back to the recovery room in stable condition with no complications. Appropriate timeouts were done before the procedure and during the procedure especially when the implant was handed on toward table.
--- NOTE | 2017-08-15 12:40 | PN- Orthopedic ---
Subjective Subjective: Patient doing well postop day 1 status post irrigation debridement and exchange of the polyethylene right total knee arthroplasty. She is complaining of some discomfort but is neurologically intact. Objective Vital Signs and I&Os Vital Signs Date Time Temp Pulse Resp B/P B/P Pulse O2 O2 Flow FiO2 Mean Ox Delivery Rate 08/15 0957 100.5 82 20 132/70 95 Room Air 08/15 0610 98.7 71 20 146/70 95 Room Air 08/14 2030 97.5 64 16 124/72 98 Room Air Intake & Output 08/15 1600 08/15 0800 08/15 0000 08/14 1600 08/14 0800 08/14 0000 Intake Total 700 307.5 Output Total 500 Balance 200 307.5 Intake, IV 600 187.5 Intake, Oral 100 120 Output, Urine 500 Patient 160 lb 160 lb Weight Weight Reported by Patient Reported by Patient Measurement Method Physical Exam: Postop day 1 right knee dressings clean intact leg neurovascularly intact. Discussed with patient that all the samples from the operating room will be tested cultured with sensitivities. I did discuss with her that this will take 24-48 hours at least. Antibiotics will be regulated by the infectious disease department. Assessment/Plan Assessment/Plan Doing well status post irrigation debridement right knee with exchange of polyethylene implant right total knee arthroplasty. She can be up weightbearing as tolerated she can start gentle range of motion exercises with her knee she should be applying ice 3-4 times a day. We will wait for her cultures and sensitivities over the next 2 days. Further treatment will be determined by the results of those tests and the infectious disease input. Core Measures Venous Thromboembolism VTE Risk Factors Age>40 No Mechanical VTE Prophylaxis d/t N/A MechProphylax Ordered No VTE Pharm Prophylaxis d/t Surgical Contraindication Attending MD Review Statement Attending Statement Attending MD Statement: examined this patient
[2017-08-15 13:41] VITALS: BP 130/60
--- NOTE | 2017-08-15 14:10 | Cons- Infect Disease ---
General Information and HPI Consulting Request Date of Consult: 08/15/17 Requested By: Vadim SMITH,Ovidio Cifuentes Reason for Consult: Rule out infected right knee prosthesis Source of Information: patient, old records History of Present Illness: This is a 67-year-old woman with a history of hypertension, COPD/obstructive sleep apnea, hypothyroidism, DVT/pulmonary embolism, status post IVC filter, breast cancer, status post lumpectomy/ radiation therapy, status post gastric bypass surgery, complicated by an anastomotic leak, and osteoarthritis, status post right knee replacement 12 years prior to admission and left knee arthroscopic meniscectomy and chondroplasty 9 years prior to admission, hospitalized 2 years prior to admission with a septic left knee secondary to MSSA (with rare calcium pyrophosphate crystals also noted at that time) status post arthroscopic drainage and a 4 week course of IV Oxacillin, status post a right knee arthrocentesis 2 days prior to admission for the acute onset of pain, warmth and swelling of the knee with chills, with some relief of the pain and swelling, admitted on August 14 for right knee surgery after the synovial fluid cell count revealed 82,665 white blood cells with 89% polys. On admission she was afebrile. Laboratory data revealed a white blood cell count of 6000, BUN/ creatinine 15 and 0.6, AST/ALT 39 and 56, coags normal. She was taken to the OR on the day of admission for a right knee irrigation and debridement, with retention of the prosthesis and revision of the poly-exchange, with Cefazolin given perioperatively. She has been afebrile until this morning, with a temperature to 100.5 noted. She does note some discomfort in the right knee but is otherwise without complaints. She denies any recent trauma to the knee. She has had no recent procedures or injections but does note occasional pruritus secondary to contact dermatitis. She has had no tick bites. Allergies/Medications Allergies: Coded Allergies: MICK Inhibitors (UNKNOWN 08/14/17) Home Med List: Bupropion HCl (Wellbutrin Sr) 150 MG TABLET.ER 1 TAB PO DAILY MENTAL HEALTH ( Reported) Escitalopram Oxalate (Lexapro) 10 MG TABLET 1 TAB PO DAILY MENTAL HEALTH ( Reported) Hydroxyzine HCl 10 MG TABLET 1 TAB PO BIDP PRN ITCHING (Reported) Levothyroxine Sodium 112 MCG TABLET 1 TAB PO DAILY AC THYROID (Reported) Trazodone HCl 50 MG TABLET 2 TAB PO QPM SLEEP (Reported) Past History Travel History Traveled to [place] past 21 day No Medical History Blood Transfusion Hx: Yes Neurological: NONE EENT: NONE Cardiovascular: IVC FILTER 2010 Respiratory: asthma, COPD, obstructive sleep apnea Gastrointestinal: diverticuloisis Hepatic: hx fatty liver Renal: urinary stress incontinence Musculoskeletal: degen joint disease, osteoarthritis, osteoporosis Psychiatric: depression, CHRONIC ANXIETY DISORDER Endocrine: hypothyroidism, CONTACT DERMATITIS Blood Disorders: 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/B12 def), DVT, PE Cancer(s): breast cancer (status post radiation therapy) 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 , Age 87; Cause: CHF (congestive heart failure ). MOTHER, , Age 83; Cause: CHF (congestive heart failure). Psychosocial History Who Do You Live With? spouse Services at Home: None Primary Language: Croatian Smoking Status: Never Smoked ETOH Use: occasional use Illicit Drug Use: denies illicit drug use Living Will? yes Power of Civil Technician/HCP? unknown Functional Ability ADLs Independent: dressing, eating, toileting, bathing. Ambulation: independent IADLs Independent: shopping, housework, finances, food prep, telephone, transportation , medication admin. Review of Systems Review of Systems All Other Systems: Reviewed and Negative Exam & Diagnostic Data Last 24 Hrs of Vital Signs/I&O Vital Signs Date Time Temp Pulse Resp B/P B/P Pulse O2 O2 Flow FiO2 Mean Ox Delivery Rate 08/15 1341 98.0 72 18 130/60 93 Room Air 08/15 0957 100.5 82 20 132/70 95 Room Air 08/15 0610 98.7 71 20 146/70 95 Room Air 08/14 2030 97.5 64 16 124/72 98 Room Air Intake & Output 08/15 1600 08/15 0800 08/15 0000 Intake Total 700 307.5 Output Total 500 Balance 200 307.5 Intake, IV 600 187.5 Intake, Oral 100 120 Output, Urine 500 Patient 160 lb Weight Weight Reported by Patient Measurement Method Physical Exam Other Physical Findings: MAXIMUM TEMPERATURE 100.5 She is awake and alert in no acute distress. Skin reveals no rash. HEENT negative. Neck is supple with no adenopathy. Lungs are clear. Heart regular rhythm with no murmur. Abdomen is soft, nontender with positive bowel sounds. Back no CVA tenderness. Extremities right knee dressing intact; left knee with no inflammation and with good range of motion. Neuro is without focality. Last 24 Hours of Lab Results: Laboratory Tests 08/14 08/14 2305 1011 Chemistry Sodium (137 - 145 mmol/L) 141 Potassium (3.5 - 5.1 mmol/L) 4.3 Chloride (98 - 107 mmol/L) 103 Carbon Dioxide (22 - 30 mmol/L) 26 Anion Gap (5 - 16) 12 BUN (7 - 17 mg/dL) 15 Creatinine (0.5 - 1.0 mg/dL) 0.6 Estimated GFR (>60 ml/min) > 60 BUN/Creatinine Ratio (7 - 25 %) 25.0 Glucose (65 - 99 mg/dL) 107 H Lactic Acid (0.7 - 2.1 mmol/L) 0.8 0.7 Calcium (8.4 - 10.2 mg/dL) 9.2 Total Bilirubin (0.2 - 1.3 mg/dL) 0.6 AST (14 - 36 U/L) 39 H ALT (9 - 52 U/L) 56 H Alkaline Phosphatase (<127 U/L) 85 Total Protein (6.3 - 8.2 g/dL) 7.3 Albumin (3.5 - 5.0 g/dL) 4.0 Globulin (1.9 - 4.2 gm/dL) 3.3 Albumin/Globulin Ratio (1.1 - 2.2 %) 1.2 Coagulation PT (9.4 - 12.5 SEC) 12.3 INR (0.90 - 1.19) 1.13 APTT (25 - 37 SEC) 35 Hematology CBC w Diff NO MAN DIFF REQ WBC (4.8 - 10.8 /CUMM) 6.4 RBC (4.20 - 5.40 /CUMM) 4.10 L Hgb (12.0 - 16.0 G/DL) 13.2 Hct (37 - 47 %) 39.2 MCV (81.0 - 99.0 FL) 95.6 MCH (27.0 - 31.0 PG) 32.2 H MCHC (33.0 - 37.0 G/DL) 33.7 RDW (11.5 - 14.5 %) 12.7 Plt Count (130 - 400 /CUMM) 303 MPV (7.4 - 10.4 FL) 7.4 Gran % (42.2 - 75.2 %) 69.9 Lymphocytes % (20.5 - 51.1 %) 20.7 Monocytes % (1.7 - 9.3 %) 8.1 Eosinophils % (0 - 5 %) 1.1 Basophils % (0.0 - 2.0 %) 0.2 Absolute Granulocytes (1.4 - 6.5 /CUMM) 4.4 Absolute Lymphocytes (1.2 - 3.4 /CUMM) 1.3 Absolute Monocytes (0.10 - 0.60 /CUMM) 0.5 Absolute Eosinophils (0.0 - 0.7 /CUMM) 0.1 Absolute Basophils (0.0 - 0.2 /CUMM) 0 Last 24 Hours of [place] Results: Right knee synovial fluid August 13 (sent as an outpatient) negative Blood cultures 2 August 14 negative Right knee synovial fluid August 14 (from the OR) negative Assessment/Plan Assessment/Plan Impression: This is a 67-year-old woman with multiple medical problems including osteoarthritis, status post right knee replacement 12 years prior to admission, hospitalized 2 years prior to admission with a septic left knee secondary to MSSA (with rare calcium pyrophosphate crystals also noted at that time) status post arthroscopic drainage and a 4 week course of IV Oxacillin, admitted on August 14 after a right knee arthrocentesis 2 days prior to admission for the acute onset of pain, warmth and swelling of the knee and chills, revealed a synovial fluid cell count of 82,665 with 89% polys, now 1 day status post a right knee irrigation and debridement with retention of the prosthesis but with revision of the poly-exchange. Her clinical picture is worrisome for an infected right knee prosthesis, possibly secondary to seeding from another source, as there is no history of direct trauma to the knee, though her blood cultures are so far negative. The cultures of the synovial fluid from both the outpatient arthrocentesis and the OR, however, are negative, suggesting either that she has an unusual organism ( for example an anaerobe such as Propionibacterium, which has often been reported from infected shoulder prostheses, mycobacteria or fungal, though the acute onset would go against this, or Lyme, though her titer is negative) or that she has a noninfectious process. Of interest her synovial fluid of the left knee 2 years prior to admission did reveal a rare calcium pyrophosphate crystal, suggesting the possibility of pseudogout, which could cause inflammation in the knee. As she is stable she can continue to be followed off antibiotics pending further evaluation. Suggestion: 1. Follow-up final OR cultures 2. Add AFB and fungal cultures to the specimen in the lab (already requested) 3. Would add a uric acid to her labs 4. Consider empiric treatment for pseudogout 5. Continue to follow off antibiotics pending above Dr. Grewal will be covering over the weekend Consult Acknowledgment - Thank you for your consult request.
[2017-08-15 22:29] VITALS: BP 140/70
[2017-08-16 06:20] VITALS: BP 170/80
--- NOTE | 2017-08-16 08:30 | PN- Orthopedic ---
See Addendum Subjective Subjective: Pain improved today, MAXIMUM TEMPERATURE 100.5, asymptomatic, no flulike illness. Did poorly with physical therapy yesterday and has not moved out of bed Objective Vital Signs and I&Os Vital Signs Date Time Temp Pulse Resp B/P B/P Pulse O2 O2 Flow FiO2 Mean Ox Delivery Rate 08/16 0620 98.4 82 20 170/80 93 Room Air 08/15 2229 99.0 78 20 140/70 94 08/15 1341 98.0 72 18 130/60 93 Room Air 08/15 0957 100.5 82 20 132/70 95 Room Air Intake & Output 08/16 1600 08/16 0800 08/16 0000 08/15 1600 08/15 0800 08/15 0000 Intake Total 520 510 360 700 307.5 Output Total 200 300 500 Balance 320 210 360 200 307.5 Intake, IV 120 150 600 187.5 Intake, Oral 400 360 360 100 120 Output, Urine 200 300 500 Patient 160 lb Weight Weight Reported by Patient Measurement Method Physical Exam: Well-developed well-nourished no apparent distress. HEENT: Atraumatic, extraocular motion intact Neck: Supple, no lymphadenopathy Respiratory: No respiratory distress Extremities: No edema RIGHT Lower extremity dressing in place, Incision line is clean dry and intact with minimal bloody drainage. No signs of infection. Mild joint effusion Range of motion is 0-60. Compression wrap in place. Dressing changed, dry sterile dressing applied ALPS in place Neurovascularly intact distally Bilateral calves are supple, nontender. Neuro: Alert and oriented x3 Psych: Mood affect normal, normal memory normal judgment. Skin: Warm and dry, no rash on exposed skin Results Last 48 Hours of Labs: Laboratory Tests 08/16 08/14 08/14 0627 2305 1011 Chemistry Sodium (137 - 145 mmol/L) Pending 141 Potassium (3.5 - 5.1 mmol/L) Pending 4.3 Chloride (98 - 107 mmol/L) Pending 103 Carbon Dioxide (22 - 30 mmol/L) Pending 26 Anion Gap (5 - 16) Pending 12 BUN (7 - 17 mg/dL) Pending 15 Creatinine (0.5 - 1.0 mg/dL) Pending 0.6 Estimated GFR (>60 ml/min) > 60 BUN/Creatinine Ratio (7 - 25 %) Pending 25.0 Glucose (65 - 99 mg/dL) 107 H Lactic Acid (0.7 - 2.1 mmol/L) 0.8 0.7 Calcium (8.4 - 10.2 mg/dL) 9.2 Total Bilirubin (0.2 - 1.3 mg/dL) 0.6 AST (14 - 36 U/L) 39 H ALT (9 - 52 U/L) 56 H Alkaline Phosphatase (<127 U/L) 85 Total Protein (6.3 - 8.2 g/dL) 7.3 Albumin (3.5 - 5.0 g/dL) 4.0 Globulin (1.9 - 4.2 gm/dL) 3.3 Albumin/Globulin Ratio (1.1 - 2.2 %) 1.2 Coagulation PT (9.4 - 12.5 SEC) 12.3 INR (0.90 - 1.19) 1.13 APTT (25 - 37 SEC) 35 Hematology CBC w Diff Pending NO MAN DIFF REQ WBC (4.8 - 10.8 /CUMM) Pending 6.4 RBC (4.20 - 5.40 /CUMM) Pending 4.10 L Hgb (12.0 - 16.0 G/DL) Pending 13.2 Hct (37 - 47 %) Pending 39.2 MCV (81.0 - 99.0 FL) Pending 95.6 MCH (27.0 - 31.0 PG) Pending 32.2 H MCHC (33.0 - 37.0 G/DL) Pending 33.7 RDW (11.5 - 14.5 %) Pending 12.7 Plt Count (130 - 400 /CUMM) Pending 303 MPV (7.4 - 10.4 FL) Pending 7.4 Gran % (42.2 - 75.2 %) 69.9 Lymphocytes % (20.5 - 51.1 %) 20.7 Monocytes % (1.7 - 9.3 %) 8.1 Eosinophils % (0 - 5 %) 1.1 Basophils % (0.0 - 2.0 %) 0.2 Absolute Granulocytes (1.4 - 6.5 /CUMM) 4.4 Absolute Lymphocytes (1.2 - 3.4 /CUMM) 1.3 Absolute Monocytes (0.10 - 0.60 /CUMM) 0.5 Absolute Eosinophils (0.0 - 0.7 /CUMM) 0.1 Absolute Basophils (0.0 - 0.2 /CUMM) 0 Assessment/Plan Assessment/Plan Postop day #2 status post polyethylene liner exchange of right total knee arthroplasty secondary to presumed septic knee versus pseudogout. Appreciate ID recommendations. Awaiting cultures, antibiotics on hold Follow a.m. labs Daily dressing changes, changed today, dsd applied lovenox for dvt ppx (hx of pe/dvt) Out of bed with physical therapy, weightbearing as tolerated Discharge planning 1-2 days Core Measures Venous Thromboembolism VTE Risk Factors Age>40 No Mechanical VTE Prophylaxis d/t N/A MechProphylax Ordered No VTE Pharm Prophylaxis d/t Surgical Contraindication
[2017-08-16 09:30] LABS: ABSOLUTE BASOPHIL COUNT 0 /CUMM (0.0-0.2); ABSOLUTE EOSINOPHIL COUNT 0.3 /CUMM (0.0-0.7); ABSOLUTE GRANULOCYTE CT 3.2 /CUMM (1.4-6.5); ABSOLUTE MONOCYTE COUNT 0.5 /CUMM (0.10-0.60); BASOPHIL % 0.4 % (0.0-2.0); EOSINOPHIL % 6.1 % (0-5); GRANULOCYTE % 63.4 % (42.2-75.2); MEAN CORPUSCULAR HGB CONC 33.6 G/DL (33.0-37.0); MEAN CORPUSCULAR VOLUME 95.2 FL (81.0-99.0); MEAN PLATELET VOLUME 7.7 FL (7.4-10.4); PLATELET COUNT 317 /CUMM (130-400); RBC DISTRIBUTION WIDTH 12.8 % (11.5-14.5); RED BLOOD CELL CT 3.41 /CUMM (4.20-5.40); WHITE BLOOD CELL COUNT 5.1 /CUMM (4.8-10.8)
[2017-08-16 10:04] LABS: HEMATOCRIT 32.4 % (37-47)
[2017-08-16 13:38] VITALS: BP 160/80
--- NOTE | 2017-08-16 22:19 | PN- Att Addend ---
Attending Addendum Attending Brief Note S: The patient states feeling better and more mobile today. O: VS: Vital Signs Date Time Temp Pulse Resp B/P B/P Pulse O2 O2 Flow FiO2 Mean Ox Delivery Rate 08/16 2042 100.2 08/16 1338 98.3 82 18 160/80 95 Room Air 08/16 0620 98.4 82 20 170/80 93 Room Air 08/15 2229 99.0 78 20 140/70 94 Intake & Output 08/16 1600 08/16 0800 08/16 0000 Intake Total 800 520 510 Output Total 300 200 300 Balance 500 320 210 Intake, IV 120 150 Intake, Oral 800 400 360 Output, Urine 300 200 300 Current Medications Sig/Annamarie Start time Last Medication Dose Route Stop Time Status Admin Acetaminophen 650 MG Q4P PRN 08/17 1999 AC 08/16 PO 204 Acetaminophen 1,000 MG Q6H 08/15 1030 DC 08/16 N/A 1 UNIT IV 08/16 0444 0548 Bupropion HCl 150 MG DAILY 08/15 09 AC 08/16 PO 0942 Docusate Sodium 100 MG BID 08/14 2327 AC 08/16 PO 1933 Enoxaparin Sodium 40 MG DAILY 08/15 0900 AC 08/16 SC 0942 Escitalopram Oxalate 10 MG DAILY 08/15 0900 AC 08/16 PO 0941 Hydroxyzine HCl 25 MG TID PRN 08/14 1100 AC 08/15 PO 1612 Ketorolac 15 MG Q6P PRN 08/15 1030 AC 08/16 Tromethamine IV 1936 Levothyroxine Sodium 0.112 MG DAILY AC 08/15 0700 AC 08/16 PO 0548 Morphine Sulfate 2 MG Q2 HRS NEEDED PRN 08/14 2315 AC 08/16 IV 1933 Oxycodone HCl 5 MG Q4-6 PRN PRN 08/15 1030 AC 08/16 PO 1329 Oxycodone HCl 10 MG Q4-6 PRN PRN 08/15 1030 AC 08/16 PO 0946 Pantoprazole Sodium 40 MG DAILY 08/15 1045 AC 08/16 IV 0942 Polyethylene Glycol 17 GM DAILY 08/15 09 AC 08/16 PO 0942 Trazodone HCl 100 MG QPM 08/14 2200 AC 08/16 PO 1933 Physical Exam: Chest: clear Cor: RRR nl S1, S2 w/o murm Abd: BS+, soft, NT Ext: leg in brace Labs/Tests: Laboratory Tests 08/16/17 0627: Anion Gap 9, Estimated GFR > 60, BUN/Creatinine Ratio 16.0, CBC w Diff NO MAN DIFF REQ, RBC 3.41 L, MCV 95.2, MCH 32.0 H, MCHC 33.6, RDW 12.8, MPV 7.7, Gran % 63.4, Lymphocytes % 20.1 L, Monocytes % 10.0 H, Eosinophils % 6.1 H, Basophils % 0.4, Absolute Granulocytes 3.2, Absolute Lymphocytes 1.0 L, Absolute Monocytes 0.5, Absolute Eosinophils 0.3, Absolute Basophils 0 08/14/17 2305: Lactic Acid 0.8 Impression/Plan: #Arthritis Right Knee- cultures of fluid still showing no growth. ? pseudogout vs septic joint with fastidious organism. Plan: Continue to follow off of antibiotics and wait for final cultures. Continue Ibuprofen. Post op care as per orthopedics. 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 Plan: Continue prophylaxis. #Depression/Psych- patient frustrated regarding her condition, however no significant depression. Plan: Continue usual meds.
[2017-08-16 22:26] VITALS: BP 158/80
[2017-08-17 06:00] VITALS: BP 150/92
--- NOTE | 2017-08-17 10:51 | PN- Orthopedic ---
Subjective Subjective: Awake, alert Complaining of knee pain although imrpoved form yesterday Pain is tolerable with meds denies chest pain, sob, Objective Vital Signs and I&Os Vital Signs Date Time Temp Pulse Resp B/P B/P Pulse O2 O2 Flow FiO2 Mean Ox Delivery Rate 08/17 0600 97.7 75 20 150/92 95 Room Air 08/16 2226 100.3 64 20 158/80 95 08/16 2142 100.0 08/16 2043 100.2 08/16 1338 98.3 82 18 160/80 95 Room Air Intake & Output 08/17 1600 08/17 0800 08/17 0000 08/16 1600 08/16 0800 08/16 0000 Intake Total 130 250 800 520 510 Output Total 300 200 300 Balance 130 250 500 320 210 Intake, IV 10 10 120 150 Intake, Oral 120 240 800 400 360 Output, Urine 300 200 300 Physical Exam: Tmax 100.3, current 97 General: alert and oriented times three Chest: clear anteriorly bilaterally, RRR Abd: soft, good bs Ext: warm, no calf tenderness, normosensate, decreased ROM at R knee appropriate post op Wd: dressing changed, looks good, no s/s infx Assessment/Plan Assessment/Plan 76yo female s/p R [place] washout/poly exchange pod 3 Cultures no growth so far - continue to follow until final results ?pseudogout Continue off antibiotics per ID ibuprofen as needed PT dc planning - home vs rehab Core Measures Venous Thromboembolism VTE Risk Factors Age>40 No Mechanical VTE Prophylaxis d/t N/A MechProphylax Ordered No VTE Pharm Prophylaxis d/t Surgical Contraindication
[2017-08-17 13:41] VITALS: BP 140/80
--- NOTE | 2017-08-17 14:06 | PN- Att Addend ---
Attending Addendum Attending Brief Note S: The patient notes gradual improvement in right leg pain- more mobile today. Still having low grade temps 100.3. O: VS: Vital Signs Date Time Temp Pulse Resp B/P B/P Pulse O2 O2 Flow FiO2 Mean Ox Delivery Rate 08/17 1341 99.5 78 20 140/80 95 Room Air 08/17 0600 97.7 75 20 150/92 95 Room Air 08/16 2226 100.3 64 20 158/80 95 08/16 2142 100.0 08/16 2043 100.2 Intake & Output 08/17 1600 08/17 0800 08/17 0000 Intake Total 800 130 250 Output Total 300 Balance 500 130 250 Intake, IV 10 10 Intake, Oral 800 120 240 Output, Urine 300 Physical Exam: Chest: clear Cor: RRR nl S1, S2 w/o murm Abd: BS+, soft, NT Ext: RLE in brace Labs/Tests: Laboratory Tests 08/16/17 0627: Anion Gap 9, Estimated GFR > 60, BUN/Creatinine Ratio 16.0, CBC w Diff NO MAN DIFF REQ, RBC 3.41 L, MCV 95.2, MCH 32.0 H, MCHC 33.6, RDW 12.8, MPV 7.7, Gran % 63.4, Lymphocytes % 20.1 L, Monocytes % 10.0 H, Eosinophils % 6.1 H, Basophils % 0.4, Absolute Granulocytes 3.2, Absolute Lymphocytes 1.0 L, Absolute Monocytes 0.5, Absolute Eosinophils 0.3, Absolute Basophils 0 08/14/17 2305: Lactic Acid 0.8 Microbiology 08/14 230 BLOOD: Blood Culture - RES 08/14 1729 BODY FLUID: Body Fluid Culture - COMP 08/14 1729 BODY FLUID: Gram Stain - COMP 08/15 1711 EXTREMITIE: Gross Specimen Examination - CAN Cancelled: SPECIMEN NOT RECEIVED IN LABORATORY 08/15 1711 EXTREMITIE: Gram Stain - CAN Cancelled: SPECIMEN NOT RECEIVED IN LABORATORY Impression/Plan: #Arthritis Right Knee- cultures of fluid still showing no growth. ? pseudogout vs septic joint with fastidious organism. Low grade fevers noted as above. Plan: Continue to follow off of antibiotics and wait for final cultures. Continue Ibuprofen. Post op care as per orthopedics. 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 Plan: Continue prophylaxis. #Depression/Psych- patient with no significant depression. Plan: Continue usual meds.
[2017-08-17 22:18] VITALS: BP 120/60
[2017-08-18 06:22] VITALS: BP 132/76
--- NOTE | 2017-08-18 07:16 | PN- Gen Med ---
Lucy SMITH,[facility] 08/18/17 0715: Assessment/Plan Medical Assessment: Ms Red is a 67-year-old female with past medical history of COPD, TITA (no longer on CPAP machine) hypothyroidism, PT and PE, history of IVC filter placement, history of gastric bypass and mood disorder (?Bipolar) who was seen today after successful right washout and polyexcange. POD #4. Max temperature overnight 100.5 Problem List: 1. Left knee pain 2. S/P knee surgery Plan: Left Knee pain, concern for septic/infected joint/psuedogout Following surgical procedure 12 years ago, no infections. At the time of admission patient did not meet septic criteria. Plan: RCRI, Class 1 Risk. 0.4% Risk of Major Cardiac event. Received in ID consultation on 08/15, recommended following patient off antibiotics, does remain negative likely due to atypical organisms, fungi or mycobacteria. May consider empiric coverage for pseudogout (two years ago, synovial fluid had: calcium pyrophosphate crystals), with Cohchicine. Incentive spirometer. History of mood disorders. Currently Stable Plan Continue home Buproprion, Ecitalopram, Hold trazodone for now. History of pruritus Currently Stable Plan Continue hydroxyzine, consider dose increase to 50 mg TID. History of Hypothyroidism Clinincally Eurthyroid on levothyroxine. Plan: Will Continue Levothyroxine Post op. History of DVT/PE. Patient does have an increased risk of clot. She is Status post IVC placement. Plan Continue Lovenox. DVT prophylaxis as per surgery. Constipation Maybe attributed to pain medications. Plan Senna, Dulcolax, MiraLAX by mouth. Consider suppository if still no relief. Patient is a full code. Thank you for consult request we will continue follow with you. Subjective Follow-up For: Knee pain Subjective: Ms Red was seen and examined today. She is resting comfortably in bed. She reports that she is much more comfortable in her present room owing to the fact that over the last 72 hours she was unable to get much rest due to noisy roommate. She states that she does feel better although continues to experience some knee pain. States that pain is under control. Also reports that she's been able to work with physical therapy. Denies any fever, chills, nausea, vomiting. Has been able to tolerate by mouth intake well however states has not had a bowel movement in a few days. Review of Systems Constitutional: Reports: see HPI. Objective Last 24 Hrs of Vital Signs/I&O Vital Signs Date Time Temp Pulse Resp B/P B/P Pulse O2 O2 Flow FiO2 Mean Ox Delivery Rate 08/18 1410 99.0 85 20 140/80 95 Room Air 08/18 1351 Room Air 08/18 0622 99.0 77 20 132/76 93 Room Air 08/17 2227 99.4 08/17 2218 100.5 82 20 120/60 92 Intake & Output 08/18 1600 08/18 0800 08/18 0000 Intake Total 480 100 100 Output Total 500 400 Balance 480 -400 -300 Intake, Oral 480 100 100 Number 0 0 Bowel Movements Output, Urine 500 400 Physical Exam General Appearance: Alert, Oriented X3, Cooperative Skin: No Rashes Cardiovascular: Regular Rate, Normal S1, Normal S2 Lungs: Clear to Auscultation Abdomen: Normal Bowel Sounds, Soft, No Tenderness Neurological: Normal Speech Extremities: No Edema, Normal Pulses, Left knee wrapped in bandage. C/D/I. No strike through. Vascular: Normal Pulses Current Medications: Current Medications Sig/Annamarie Start time Last Medication Dose Route Stop Time Status Admin Acetaminophen 650 MG Q4P PRN 08/17 1999 AC 08/16 PO 204 Bisacodyl 10 MG ONCE ONE 08/18 09 DC TX 08/18 0901 Bupropion HCl 150 MG DAILY 08/15 09 AC 08/18 PO 0919 Colchicine 600 MCG BID 08/18 1400 AC PO Docusate Sodium 100 MG BID 08/14 2327 AC 08/18 PO 0918 Enoxaparin Sodium 40 MG DAILY 08/15 09 AC 08/18 SC 0919 Escitalopram Oxalate 10 MG DAILY 08/15 09 AC 08/18 PO 0918 Hydroxyzine HCl 25 MG TID PRN 08/14 1100 AC 08/18 PO 0919 Ketorolac 15 MG Q6P PRN 08/15 1030 AC 08/17 Tromethamine IV 2008 Levothyroxine Sodium 0.112 MG DAILY AC 08/15 0700 AC 08/18 PO 0558 Morphine Sulfate 2 MG Q2 HRS NEEDED PRN 08/14 2315 AC 08/16 IV 1933 Oxycodone HCl 5 MG Q4-6 PRN PRN 08/15 1030 AC 08/17 PO 2134 Oxycodone HCl 10 MG Q4-6 PRN PRN 08/15 1030 AC 08/18 PO 1201 Pantoprazole Sodium 40 MG DAILY 08/15 1045 AC 08/18 IV 0918 Polyethylene Glycol 17 GM DAILY 08/15 0900 AC 08/18 PO 0919 Sodium Chloride 2 SPRAY Q4P PRN 08/17 2145 AC 08/18 TENZIN 0558 Trazodone HCl 100 MG QPM 08/140 AC 08/17 PO 2009 Last 24 Hrs of Labs/Mics: Laboratory Tests 08/18/17 1000: Anion Gap 10, Estimated GFR > 60, BUN/Creatinine Ratio 21.7, CBC w Diff NO MAN DIFF REQ, RBC 3.62 L, MCV 95.2, MCH 31.0, MCHC 32.6 L, RDW 13.1, MPV 7.3 L, Gran % 68.4, Lymphocytes % 18.1 L, Monocytes % 8.1, Eosinophils % 5.2 H, Basophils % 0.2, Absolute Granulocytes 3.9, Absolute Lymphocytes 1.0 L, Absolute Monocytes 0.5, Absolute Eosinophils 0.3, Absolute Basophils 0 Zhang Washington MD 08/18/17 1737: Attending MD Review Statement Attending Statement Attending MD Statement: examined this patient, discuss w/resident/PA/RN NEONATAL, agreed w/resident/PA/RN NEONATAL, reviewed EMR data (avail), discussed w/nursing, discussed w/ case mgmt, amended to note Attending Assessment/Plan: The patient was seen and discussed with house staff. Still with low grade fever and thus far cultures are negative. Agree with addition of colchicine for possible pseudogout. Holding antibiotics pending cultures.
--- NOTE | 2017-08-18 08:51 | PN- Orthopedic ---
Subjective Subjective: She reports pain better controlled with respect to her right knee. No f/c/s. Tolerating diet. No nausea. Passing flatus, but no bm yet. Only out of bed once over the weekend, with great difficulty. Very limited range of motion of her right knee, limited by pain she reports. No dizziness. No shortness of breath. No chest pains. Voiding well. Objective Vital Signs and I&Os Vital Signs Date Time Temp Pulse Resp B/P B/P Pulse O2 O2 Flow FiO2 Mean Ox Delivery Rate 08/18 0622 99.0 77 20 132/76 93 Room Air 08/17 2227 99.4 08/17 2218 100.5 82 20 120/60 92 08/17 1341 99.5 78 20 140/80 95 Room Air Intake & Output 08/18 1600 08/18 0800 08/18 0000 08/17 1600 08/17 0800 08/17 0000 Intake Total 100 100 800 130 250 Output Total 500 400 300 Balance -400 -300 500 130 250 Intake, IV 10 10 Intake, Oral 100 100 800 120 240 Number 0 Bowel Movements Output, Urine 500 400 300 Physical Exam: General - alert & oriented x 3. comfortable. no acute distress. Lungs - clear bilaterally. no w/r/r. Cardiac - s1s2. reg. Abdomen - soft. nontender. Extremities - warm bilaterally. right knee dressing changed. incision well approximated with misbah. no erythema or exudates. calves soft and nontender b/ l. very limited range of motion, right knee. strong DF/PF. nvi. Assessment/Plan Assessment/Plan This 67 year old female hx gastric bypass, hx pe/dvt s/p ivc filter, anxiety/ depression, who presented with right septic knee in the setting of a previous right TKR, now POD#4 s/p washout and poly exchange, no growth from OR cultures to date, ?pseudogout tolerating diet f/u PT recommendations dressing changed lovenox - dvt ppx f/u labs and OR cxs tylenol / oxycodone iv toradol as needed protonix - gi ppx dressing changed f/u ID recommendations f/u medical consult will d/w Core Measures Venous Thromboembolism VTE Risk Factors Age>40 No Mechanical VTE Prophylaxis d/t N/A MechProphylax Ordered No VTE Pharm Prophylaxis d/t Surgical Contraindication
--- NOTE | 2017-08-18 09:30 | Surgical Discharge Summary ---
Visit Information Visit Dates Admission Date: 08/14/17 Discharge Date: 08/20/17 History of Present Illness Chief Complaint: right knee pain, presumed septic join Medical History Blood Transfusion Hx: Yes Neurological: NONE EENT: NONE Cardiovascular: IVC FILTER 2010 Respiratory: asthma, COPD, obstructive sleep apnea Gastrointestinal: diverticuloisis Hepatic: hx fatty liver Renal: urinary stress incontinence Musculoskeletal: degen joint disease, osteoarthritis, osteoporosis Psychiatric: depression, CHRONIC ANXIETY DISORDER Endocrine: hypothyroidism, CONTACT DERMATITIS Blood Disorders: 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/B12 def), DVT, PE Cancer(s): breast cancer (status post radiation therapy) WELT WHEELER/Reproductive: NONE Other Medical Hx: Sepsis after gastric bypass, psoriasis L knee septic arthritis History of MRSA: No History of VRE: No History of CDIFF: No Isolation History: Standard Influenza Vaccine: 02/02/15 Surgical History Pertinent Surgical History: hernia repair-ventral, knee replacement (right knee) , lumpectomy (left x2 1996), left knee arthroplasty lumpectomy gastric bypass f/b lap x 2 for anast leak & intra abd abscess Family History Relations & Conditions If Any: FATHER (Hx colon polyps). , Age 87; Cause: CHF (congestive heart failure ). MOTHER, , Age 83; Cause: CHF (congestive heart failure). Psychosocial History Who Do You Live With? Spouse Services at Home: None What is Your Primary Language? Slovenian ETOH Use: occasional use Review of Systems: see h&p Hospital Course Course Attending Physician: Vadim SMITH,Ovidio Ciufentes Primary Care Physician: Opal SMITH,Calista Schroeder Hospital Course: Presented as a direct admission to on 08/14/17 for presumed right septic knee infection. 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 Started on lovenox 40 daily for dvt risk reduction. PT eval and treatment started post-op day#1. Aubrie-operative antibiotics started, with OR cultures that have shown no growth to date. Standard dressing changes with dry gauze started on post-op day#2, and continued daily. Routine post-op labs obtained. Pain control transitioned from iv to oral medication as tolerated. With negative OR cultures, pseudogout was thought to be apart of the differential of her presenting symptoms. She will be discharged with colchine 600 mcg twice daily dosing for presumptive pseudogout, which is recommended to continue until the attack abates. 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 negative operative cultures, with pseudogout in the differential of her presenting complaint Discharge Disposition: SNF Discharge Instructions General Discharge Information Code Status: Full Code Patient's Diet: regular diet as tolerated, hx gastric bypass Patient's Activity: weight bearing as tolerated. rolling walker assistance as needed. Follow-Up Instructions/Appts: 2 week follow up for staple removal, and 6 week follow up with Medications at Discharge Discharge Medications: Continue taking these medications: Bupropion HCl (Wellbutrin Sr) 150 MG TABLET.ER 1 Tablet ORAL DAILY Qty = 90 Levothyroxine Sodium (Levothyroxine Sodium) 112 MCG TABLET 1 Tablet ORAL DAILY BEFORE BREAKFAST Qty = 90 Escitalopram Oxalate (Lexapro) 10 MG TABLET 1 Tablet ORAL DAILY Qty = 90 Trazodone HCl (Trazodone HCl) 50 MG TABLET 2 Tablet ORAL Every night Qty = 180 Hydroxyzine HCl (Hydroxyzine HCl) 10 MG TABLET 1 Tablet ORAL 2 x Daily as needed as needed for ITCHING Start taking the following new medications: Colchicine (Colchicine) 0.6 MG TABLET 1 Tablet ORAL TWICE DAILY Qty = 60 No Refills Instructions: continue until attack abates Docusate Sodium (Docusate Sodium) 100 MG CAPSULE 100 Milligram ORAL TWICE DAILY as needed for CONSTIPATION Days = 14 No Refills Instructions: hold for loose stool / diarrhea Enoxaparin Sodium (Lovenox) 40 MG/0.4 ML SYRINGE 40 Milligram Inject into fatty tissue DAILY Days = 21 No Refills Instructions: continue lovenox injections daily, as directed Polyethylene Glycol 3350 (Miralax) 17 GRAM/DOSE POWDER 17 Gram ORAL DAILY as needed for CONSTIPATION Days = 7 No Refills Sodium Chloride (Deep Sea) 0.65 % SPRAY 2 [place] In the nose EVERY 4 HOURS NEEDED as needed for CONGESTION Days = 10 No Refills Acetaminophen (Tylenol Extra Strength) 500 MG TABLET 1 Tablet ORAL EVERY 4-6 HOURS NEEDED as needed for any pain scale Days = 10 No Refills Instructions: may give in combination with oxycodone Oxycodone HCl (Oxycodone HCl) 5 MG TABLET 1-2 Tablet ORAL EVERY 4-6 HOURS NEEDED as needed for pain control Qty = 30 No Refills Instructions: may give in combination with tylenol Copies To: Opal SMITH,Calista Schroeder; Rosalina SMITH,William Chapman
--- NOTE | 2017-08-18 09:44 | Patient Discharge Instructions ---
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 Watch for these problems: fever>101.3, increased pain, redness/swelling/drainage, dizziness, shortness of breath, chest pains Call Surgeon to remove: [facility] Other wound care: dry guaze dressing change daily, right knee staple removal around post-op day#14 Diet Continue normal diet: No Recommended Diet: Regular Activity Full Activity/No Limits: Yes Activity Self Limited: Yes Activity Limited to: Weight bear as tolerated Other activity limits: continue PT. wbat. rolling walker assistance. ROM Acute Coronary Syndrome Inclusion Criteria At DC or during hospital stay patient has or had the following: ACS DIAGNOSIS No Discharge Core Measures Meds if any: Prescribed or Continued at Discharge Meds if any: NOT Prescribed or Continued at Discharge Congestive Heart Failure Inclusion Criteria At DC or during hospital stay patient has or had the following: CHF DIAGNOSIS No Discharge Core Measures Meds if any: Prescribed or Continued at Discharge Meds if any: NOT Prescribed or Continued at Discharge Cerebrovascular accident Inclusion Criteria At DC or during hospital stay patient has or had the following: CVA/TIA Diagnosis No Discharge Core Measures Meds if any: Prescribed or Continued at Discharge Meds if any: NOT Prescribed or Continued at Discharge Venous thromboembolism Inclusion Criteria VTE Diagnosis No VTE Type NONE VTE Confirmed by (Test) NONE Discharge Core Measures - Per Current guidelines, there needs to be overlap - treatment for the first 5 days of Warfarin therapy. - If discharged on Warfarin prior to 5 days of - overlap therapy, the patient will need to be - assessed for post discharge needs including - *Post discharge parental anticoagulation - *Warfarin and/or parental anticoagulation education - *Follow up date to check INR post discharge At least 5 days overlap therapy as Inpatient No Meds if any: Prescribed or Continued at Discharge Note: Overlap Therapy is Warfarin and Anticoagulant Meds if any: NOT Prescribed or Continued at Discharge
[2017-08-18] MEDS ORDERED: OXYCODONE HCL5 M1 PO (09:48)
[2017-08-18] MEDS ORDERED: DEEP SEA44 ML NAS (09:48)
[2017-08-18] MEDS ORDERED: DOCUSATE SODIU100 M3 PO (09:48)
[2017-08-18] MEDS ORDERED: LOVENOX40 MG/0.1 SC (09:48)
[2017-08-18] MEDS ORDERED: TYLENOL EXTRA500 M2 PO (09:48)
[2017-08-18] MEDS ORDERED: MIRALAX119 GM PO (09:48)
[2017-08-18 10:46] LABS: ABSOLUTE BASOPHIL COUNT 0 /CUMM (0.0-0.2); ABSOLUTE EOSINOPHIL COUNT 0.3 /CUMM (0.0-0.7); ABSOLUTE GRANULOCYTE CT 3.9 /CUMM (1.4-6.5); ABSOLUTE MONOCYTE COUNT 0.5 /CUMM (0.10-0.60); BASOPHIL % 0.2 % (0.0-2.0); EOSINOPHIL % 5.2 % (0-5); GRANULOCYTE % 68.4 % (42.2-75.2); HEMATOCRIT 34.5 % (37-47); MEAN CORPUSCULAR HGB CONC 32.6 G/DL (33.0-37.0); MEAN CORPUSCULAR VOLUME 95.2 FL (81.0-99.0); MEAN PLATELET VOLUME 7.3 FL (7.4-10.4); PLATELET COUNT 441 /CUMM (130-400); RBC DISTRIBUTION WIDTH 13.1 % (11.5-14.5); RED BLOOD CELL CT 3.62 /CUMM (4.20-5.40); WHITE BLOOD CELL COUNT 5.7 /CUMM (4.8-10.8)
--- NOTE | 2017-08-18 12:15 | PN- Infect Dx ---
Subjective Subjective: MAXIMUM TEMPERATURE 100.5. She notes continued, though decreased, pain in the right knee. Objective Last 24 Hrs of Vital Signs/I&O Vital Signs Date Time Temp Pulse Resp B/P B/P Pulse O2 O2 Flow FiO2 Mean Ox Delivery Rate 08/18 0622 99.0 77 20 132/76 93 Room Air 08/17 2227 99.4 08/17 2218 100.5 82 20 120/60 92 08/17 1341 99.5 78 20 140/80 95 Room Air Intake & Output 08/18 1600 08/18 0800 08/18 0000 Intake Total 100 100 Output Total 500 400 Balance -400 -300 Intake, Oral 100 100 Number 0 Bowel Movements Output, Urine 500 400 Physical Exam Other Physical Findings: She appears comfortable in no acute distress Extremities right knee incision clean, with no erythema or drainage; mild swelling with decreased range of motion Results Last 24 Hours of Lab Results: Laboratory Tests 08/18 1000 Chemistry Sodium (137 - 145 mmol/L) 138 Potassium (3.5 - 5.1 mmol/L) 4.3 Chloride (98 - 107 mmol/L) 100 Carbon Dioxide (22 - 30 mmol/L) 28 Anion Gap (5 - 16) 10 BUN (7 - 17 mg/dL) 13 Creatinine (0.5 - 1.0 mg/dL) 0.6 Estimated GFR (>60 ml/min) > 60 BUN/Creatinine Ratio (7 - 25 %) 21.7 Hematology CBC w Diff NO MAN DIFF REQ WBC (4.8 - 10.8 /CUMM) 5.7 RBC (4.20 - 5.40 /CUMM) 3.62 L Hgb (12.0 - 16.0 G/DL) 11.2 L Hct (37 - 47 %) 34.5 L MCV (81.0 - 99.0 FL) 95.2 MCH (27.0 - 31.0 PG) 31.0 MCHC (33.0 - 37.0 G/DL) 32.6 L RDW (11.5 - 14.5 %) 13.1 Plt Count (130 - 400 /CUMM) 441 H MPV (7.4 - 10.4 FL) 7.3 L Gran % (42.2 - 75.2 %) 68.4 Lymphocytes % (20.5 - 51.1 %) 18.1 L Monocytes % (1.7 - 9.3 %) 8.1 Eosinophils % (0 - 5 %) 5.2 H Basophils % (0.0 - 2.0 %) 0.2 Absolute Granulocytes (1.4 - 6.5 /CUMM) 3.9 Absolute Lymphocytes (1.2 - 3.4 /CUMM) 1.0 L Absolute Monocytes (0.10 - 0.60 /CUMM) 0.5 Absolute Eosinophils (0.0 - 0.7 /CUMM) 0.3 Absolute Basophils (0.0 - 0.2 /CUMM) 0 Last 24 Hours of [place] Results: OR culture August 14 labeled right knee synovial fluid negative Synovial fluid August 13 from the right knee (sent as an outpatient) negative, with AFB smear negative and AFB and fungal cultures pending Blood cultures 2 August 14 negative Assessment/Plan ID Impression: Low-grade fevers persist, with her white blood cell count remaining normal, off antibiotics now 4 days status post right knee irrigation and debridement, with retention of the prosthesis but revision of the poly-exchange for a possible infected right knee prosthesis, with the synovial fluid culture from the OR as well as from the arthrocentesis performed 2 days prior to admission both negative. The negative cultures suggest either an unusual organism that is difficult to isolate (for example Propionibacterium, mycobacteria or fungal) or a noninfectious process, such as pseudogout, particularly given the evidence of a rare calcium pyrophosphate crystal on the synovial fluid of the left knee on her hospitalization 2 years prior to admission. Suggestion: 1. Would consider empiric treatment for pseudogout (for example with Colchicine ) 2. Continue to follow off antibiotics
[2017-08-18] MEDS ORDERED: COLCHICINE0.6 M2 PO ×2 (14:03→14:11)
[2017-08-18 14:10] VITALS: BP 140/80
[2017-08-18 22:24] VITALS: BP 108/60
[2017-08-19 06:00] VITALS: BP 118/76
--- NOTE | 2017-08-19 07:03 | PN- Medicine Consult ---
Lucy SMITH,[facility] 08/19/17 0703: Assessment/PlanMedical Consult Assessment/Plan Assessment: Ms Red is a 67-year-old female with past medical history of COPD, TITA (no longer on CPAP machine) hypothyroidism, PT and PE, history of IVC filter placement, history of gastric bypass and mood disorder (?Bipolar) who was seen today after successful right washout and polyexcange. POD #5. Plan: Left Knee pain, concern for septic/infected joint/psuedogout Following surgical procedure 12 years ago, no infections. At the time of admission patient did not meet septic criteria. Plan: RCRI, Class 1 Risk. 0.4% Risk of Major Cardiac event. Received in ID consultation on 08/15, recommended following patient off antibiotics, does remain negative likely due to atypical organisms, fungi or mycobacteria. May consider empiric coverage for pseudogout (two years ago, synovial fluid had: calcium pyrophosphate crystals), with Cohchicine and NSAID. Incentive spirometer. History of mood disorders. Currently Stable Plan Continue home Buproprion, Ecitalopram. History of pruritus Currently Stable Plan Continue hydroxyzine. History of Hypothyroidism Clinincally Eurthyroid on levothyroxine. Plan: Will Continue Levothyroxine Post op. History of DVT/PE. Patient does have an increased risk of clot. She is Status post IVC placement. Plan Continue Lovenox. DVT prophylaxis as per surgery. Constipation Maybe attributed to pain medications. Plan Senna, Dulcolax, MiraLAX by mouth. Consider suppository if still no relief. Patient is a full code. Thank you for consult request we will continue follow with you. Subjective Subjective: Ms Red was seen and examined this morning. Resting comfortably in bed. Denies any issues overnight. States that she was able to sleep much better now that she is in a private room. She has had issues and states that her pain is well controlled. At the time of our clinical interaction she rated her pain at a 3/10 in severity. She has been tolerating by mouth intake well although still has not had a bowel movement despite multiple attempts. She is agreeable to taking a suppository today. She denies any fever, chills, nausea, vomiting. Review of Systems Constitutional: Reports: see HPI. Objective Last 24 Hrs of Vital Signs/I&O Vital Signs Date Time Temp Pulse Resp B/P B/P Pulse O2 O2 Flow FiO2 Mean Ox Delivery Rate 08/19 06 98.7 67 18 118/76 94 Room Air 08/18 2224 98.2 73 18 108/60 92 Room Air 08/18 1429 Room Air Room Air 08/18 1410 99.0 85 20 140/80 95 Room Air 08/18 1351 Room Air Intake & Output 08/19 1600 08/19 0800 08/19 0000 Intake Total 100 600 Output Total 500 250 Balance -400 350 Intake, Oral 100 600 Output, Urine 500 250 Patient 72.575 kg Weight Physical Exam General Appearance: well developed/nourished, no apparent distress, alert Neck: normal inspection Cardiovascular: regular rate/rhythm Respiratory: normal breath sounds, chest non-tender, no respiratory distress Peripheral Pulses: 4+ dorsalis pedis (R), 4+ dorsalis pedis (L) Abdomen: normal bowel sounds, soft, non-tender Back: normal inspection Extremities: no edema, Left leg wrapped in bandage. C/D/I. No erythema. No Calf Tenderness. Decreased ROM Current Medications: Current Medications Sig/Annamarie Start time Last Medication Dose Route Stop Time Status Admin Acetaminophen 650 MG Q4P PRN 08/16 2000 AC 08/19 PO 0831 Bisacodyl 10 MG ONCE ONE 08/18 0900 DC ND 08/18 0901 Bupropion HCl 150 MG DAILY 08/15 09 AC 08/19 PO 0830 Colchicine 600 MCG BID 08/18 1400 AC 08/18 PO 1520 Docusate Sodium 100 MG BID 08/14 2327 AC 08/19 PO 0830 Enoxaparin Sodium 40 MG DAILY 08/15 0900 AC 08/19 SC 0830 Escitalopram Oxalate 10 MG DAILY 08/15 0900 AC 08/19 PO 0830 Hydroxyzine HCl 25 MG TID PRN 08/14 1100 AC 08/18 PO 0919 Ketorolac 15 MG Q6P PRN 08/15 1030 AC 08/17 Tromethamine IV 2007 Levothyroxine Sodium 0.112 MG DAILY AC 08/15 0700 AC 08/19 PO 0605 Melatonin 5 MG AT BEDTIME PRN 08/18 1900 AC 08/18 PO 2022 Morphine Sulfate 2 MG Q2 HRS NEEDED PRN 08/14 2315 AC 08/16 IV 1933 Oxycodone HCl 5 MG Q4-6 PRN PRN 08/15 1030 08/17 PO 2134 Oxycodone HCl 10 MG Q4-6 PRN PRN 08/15 1030 08/19 PO 0249 Pantoprazole Sodium 40 MG DAILY 08/15 1045 08/19 IV 0830 Polyethylene Glycol 17 GM DAILY 08/15 0900 AC 08/19 PO 0830 Sodium Chloride 2 SPRAY Q4P PRN 08/17 2145 08/18 TENZIN 0558 Trazodone HCl 100 MG QPM 08/14 2200 08/18 PO 2020 Results Last 24 Hrs Lab/[place] Results: Laboratory Tests 08/18/17 1000: Anion Gap 10, Estimated GFR > 60, BUN/Creatinine Ratio 21.7, CBC w Diff NO MAN DIFF REQ, RBC 3.62 L, MCV 95.2, MCH 31.0, MCHC 32.6 L, RDW 13.1, MPV 7.3 L, Gran % 68.4, Lymphocytes % 18.1 L, Monocytes % 8.1, Eosinophils % 5.2 H, Basophils % 0.2, Absolute Granulocytes 3.9, Absolute Lymphocytes 1.0 L, Absolute Monocytes 0.5, Absolute Eosinophils 0.3, Absolute Basophils 0 Felix SMITH,Zhang 08/19/17 1525: Attending MD Review Statement Attending Sign Off Attending Cosign Statement: I have: examined this patient, reviewed aval EMR data, discussed mgmt plan w/ jimmy, discussed mgmt plan w/CM, discussed mgmt plan w/pt, agreed w/resident/PA/[employer] , amended to note. Other Findings: The patient was seen and discussed with house staff and case management. OK to discharge today to [facility]). Treat for pseudogout with colchicine and NSAID.
[2017-08-19 11:49] VITALS: BP 118/76
== END 2017-08-19 13:45 | DRG 467 ==
LOC: DELPENDDIS → ERH 08:59 → ER-OR 09:14 → ENTRNSPT 10:49 → EDTRNSPTSTS 11:01 → 2NA 11:02 → EDTRNSPT 11:03 → CMPTRNSPT 11:17 → ENRESERV 13:42 → ENTRNSPT 19:36 → CMPTRNSPT 20:19 → ENRESERV 08-15 05:49 → CMPBEDREQ 08-15 09:47 → 2NA 08-17 21:30 → ENPENDDIS 08-18 14:15 → 2NA 08-19 13:45
PROVIDERS: Orthopaedic Surgery; Physician Assistant; Physician Assistant Medical
PROC: 0SPC0JC Removal of Synthetic Substitute from Right Knee Joint, Patellar Surface, Open Approach (ICD-10-PCS; principal; 2017-08-14)
PROC: 0S9C0ZX Drainage of Right Knee Joint, Open Approach, Diagnostic (ICD-10-PCS; principal; 2017-08-14)
PROC: 0SRC0JA Replacement of Right Knee Joint with Synthetic Substitute, Uncemented, Open Approach (ICD-10-PCS; principal; 2017-08-14)
DX: T84.53XA Infection and inflammatory reaction due to internal right knee prosthesis, initial encounter (principal); M00.9 Pyogenic arthritis, unspecified; M86.18 Other acute osteomyelitis, other site; J44.9 Chronic obstructive pulmonary disease, unspecified; D50.9 Iron deficiency anemia, unspecified; Z98.84 Bariatric surgery status; E03.9 Hypothyroidism, unspecified; G47.33 Obstructive sleep apnea (adult) (pediatric); M19.90 Unspecified osteoarthritis, unspecified site; Z86.718 Personal history of other venous thrombosis and embolism; Z86.711 Personal history of pulmonary embolism; Z88.8 Allergy status to other drugs, medicaments and biological substances; F32.9 Major depressive disorder, single episode, unspecified; F41.9 Anxiety disorder, unspecified; Z85.3 Personal history of malignant neoplasm of breast; N39.3 Stress incontinence (female) (male); K57.90 Diverticulosis of intestine, part unspecified, without perforation or abscess without bleeding; Z96.651 Presence of right artificial knee joint; Z92.3 Personal history of irradiation; F39 Unspecified mood [affective] disorder; Z95.818 Presence of other cardiac implants and grafts
CPT/HCPCS: 2NAP; 2NASP; 86618; 87070; 87075; 36415; 36592; 82436; 86431; 87040; 93005; 93010; 96374; 97110-GO; 97116-GO; 97162-GP; 97530-GO; J0131; J0690; J1200; J1650; J2250; J2765; J3010